=== PATIENT | female | born 2000 | race African-American/Black ===

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

== ENCOUNTER 2019-07-29 04:04 | Emergency (ER) | payer OTHER ==
[2019-07-29 04:44] LABS: Basophils % (A) 1 %; Eosinophils # (A) 0.1 k/uL (0-0.7); Eosinophils % (A) 2 %; HCT 37.8 % (34.0-46.0); Lymphocytes # (A) 2.1 k/uL (1.0-4.8); Lymphocytes % (A) 29 %; MCH 28.8 pg (25.0-35.0); MCHC 34.3 g/dL (31.0-37.0); MCV 84.1 fL (80.0-100.0); Mean Platelet Volume 6.5; Monocytes # (A) 0.4 k/uL (0-1.0); Monocytes % (A) 6 %; Neutrophils # (A) 4.5 k/uL (1.3-7.7); Neutrophils % (A) 61 %; Platelet Count 258 k/uL (150-450); RBC 4.49 m/uL (3.80-5.40); RDW 13.5 % (11.5-15.5); WBC 7.3 k/uL (4.0-11.0)
[2019-07-29 04:56] LABS: ALT 15 U/L (9-52); AST 17 U/L (14-36); African American GFR (CKD) >90 (>60 ml/min/1.73 sqM); Albumin 4.2 g/dL (3.5-5.0); Alkaline Phosphatase 70 U/L (38-126); Anion Gap 9 mmol/L; Blood Urea Nitrogen 3 mg/dL (7-17); Calcium 9.5 mg/dL (8.4-10.2); Carbon Dioxide 22 mmol/L (22-30); Chloride 106 mmol/L (98-107); Glucose 91 mg/dL (74-99); Non-African American GFR(CKD) >90 (>60 ml/min/1.73 sqM); Potassium 3.7 mmol/L (3.5-5.1); Sodium 137 mmol/L (137-145); Total Bilirubin 0.3 mg/dL (0.2-1.3); Total Protein 7.4 g/dL (6.3-8.2)
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
[2019-07-29] MEDS ORDERED: cefTRIAXone 250 MG VIAL IM STA (05:43)
[2019-07-29] MEDS ORDERED: Rhogam IMMUNE GLOBULIN 1,500 UNIT/1 ML IM ONE (05:43)
[2019-07-29] MEDS ORDERED: AZITHROMYCIN 500 MG TAB PO STA (05:43)
[2019-07-29 06:12] LABS: HCG,Quantitative Serum 79987.5 mIU/mL
[2019-07-29 06:46] VITALS: BP 141/92; PULSE 70; RESP 16; TEMP 97.9
[2019-07-30 13:54] LABS: C. trachomatis,PCR Negative (Neg,Equiv); Chlamydia trachomatis Source Cervix
[2019-07-30 13:56] LABS: N. gonorrhoeae,PCR Negative (Neg,Equiv); Neisseria Source Cervix
== END 2019-07-29 06:59 | disposition home or self-care (01) ==
LOC: EC 04:04
DX: O20.9 Hemorrhage in early pregnancy, unspecified (principal); O9A.211 Injury, poisoning and certain other consequences of external causes complicating pregnancy, first trimester; S39.91XA Unspecified injury of abdomen, initial encounter; O99.511 Diseases of the respiratory system complicating pregnancy, first trimester; J45.909 Unspecified asthma, uncomplicated; O99.611 Diseases of the digestive system complicating pregnancy, first trimester; K21.9 Gastro-esophageal reflux disease without esophagitis; O99.341 Other mental disorders complicating pregnancy, first trimester; F31.9 Bipolar disorder, unspecified; F90.9 Attention-deficit hyperactivity disorder, unspecified type; O99.331 Smoking (tobacco) complicating pregnancy, first trimester; F17.200 Nicotine dependence, unspecified, uncomplicated; Z91.010 Allergy to peanuts; Z91.048 Other nonmedicinal substance allergy status; Z79.51 Long term (current) use of inhaled steroids; Z79.899 Other long term (current) drug therapy; Z67.41 Type O blood, Rh negative; Y04.0XXA Assault by unarmed brawl or fight, initial encounter; Y93.89 Activity, other specified; Z3A.12 12 weeks gestation of pregnancy
CPT/HCPCS: 36415; 86900; 86901; 80053; 85025; 86850; 84702; 87491; 87591; 87070; 99284; 96372 ×2; J2791; J0696

== ENCOUNTER 2019-11-26 14:45 | Outpatient (CLI) | payer OTHER ==
[2019-11-26] MEDS: LACTATED RINGERS 1,000 ML IV SCH ×2 (16:58→18:35)
[2019-11-26 17:10] LABS: Appearance,Urine Clear (Clear); Bacteria,Urine Rare /hpf; Bilirubin,Urine Negative (Negative); Blood,Urine Negative (Negative); Color,Urine Yellow; Glucose,Urine (UA) Negative (Negative); Ketones,Urine Negative (Negative); Leukocyte Esterase,Urine Moderate (Negative); Mucus,Urine Occasional /hpf; Nitrite,Urine Negative (Negative); PH, Urine 6.5 (5.0-8.0); Protein,Urine Negative (Negative); RBC,Urine 2 /hpf (0-5); Specific Gravity,Urine 1.016 (1.001-1.035); Squamous Epithelial Cell,Urine 2 /hpf (0-4); Urobilinogen,Urine <2.0 mg/dL (<2.0); WBC,Urine 9 /hpf (0-5)
[2019-11-26 17:46] VITALS: BP 116/63; PULSE 76; RESP 18; TEMP 97.5
[2019-11-26 19:01] LABS: Basophils % (A) 0 %; Eosinophils # (A) 0.1 k/uL (0-0.7); Eosinophils % (A) 1 %; HCT 33.2 % (34.0-46.0); Lymphocytes # (A) 1.5 k/uL (1.0-4.8); Lymphocytes % (A) 14 %; MCH 28.2 pg (25.0-35.0); MCV 85.5 fL (80.0-100.0); Monocytes # (A) 0.5 k/uL (0-1.0); Monocytes % (A) 4 %; Neutrophils # (A) 8.5 k/uL (1.3-7.7); Neutrophils % (A) 79 %; Platelet Count 170 k/uL (150-450); RBC 3.89 m/uL (3.80-5.40); RDW 13.3 % (11.5-15.5); WBC 10.7 k/uL (4.0-11.0)
--- NOTE | 2019-11-28 11:40 | P.MSEPDOC ---
Presenting Problems - Arrival Data Date of Arrival on Unit: 11/26/19 Time of Arrival on Unit: 14:45 Mode of Transport: EMS - Complaint OB-Reason for Admission/Chief Complaint: Pain Comment: sharp shooting abdominal pain, vomiting and diarrhea Medical History - Information : 3 Para: 2 Term: 2 : 0 Abortions: Spontaneous or Elective: 0 Number of Living Children: 2 - Gestational Age Gestational Age by PAZ (wks/days): 33 Weeks and 1 Days - History Complications: No Care, Smoker, Hx. Substance Abuse Comment: marijuana Review of Systems - Review of Systems Constitutional: No problems Breast: No problems ENT: No problems Cardiovascular: No problems Respiratory: No problems Gastrointestinal: Diarrhea Genitourinary: No problems Musculoskeletal: No problems Neurological: No problems Skin: No problems Vital Signs - Temperature Temperature: 97.5 F Temperature Source: Temporal Artery Scan - Pulse Left Brachial Pulse Rate: 76 Pulse Assessment Method: Automatic Cuff - Respirations Respiratory Rate: 18 Oxygen Delivery Method: Room Air O2 Sat by Pulse Oximetry: 100 - Blood Pressure Left Arm Blood Pressure: 116/63 Blood Pressure Mean: 80 Blood Pressure Source: Automatic Cuff Medical Screen Scoring (Pre) - Cervical Exam Dilation: 0 cm = 0 Effacement: Exam Deferred Membranes: Intact - Uterine Contractions Frequency: N/A Duration: N/A Intensity: N/A - Maternal Vital Signs Maternal Temperature: N/A Maternal Blood Pressure: N/A Signs of Preeclampsia: N/A Maternal Respirations: N/A - Maternal Trauma Maternal Trauma: N/A - Assessment - Baby A Baseline FHR: 125 Heart Rate - NICHD Category: Category I (Normal) = 0 NST: Reactive Position: N/A Station: N/A - Total Score - Baby A Total Score - Baby A: 0 - Total Score - Baby B Total Score - Baby B: 0 - Total Score - Baby C Total Score - Baby C: 0 - Level of Risk - Baby A Level of Risk - Baby A: Low (0-5) - Level of Risk - Baby B Level of Risk - Baby B: Low (0-5) - Level of Risk - Baby C Level of Risk - Baby C: Low (0-5) Physician Notification (Pre) - Physician Notified Physician Notified Date: 11/26/19 Physician Notified Time: 15:32 New Order Received: Yes - Notification Comment Comment: run UA, Culture UA and send CBC Medical Screen Scoring (Post) - Uterine Contractions Frequency: N/A Duration: N/A Intensity: N/A - Maternal Vital Signs Maternal Temperature: N/A Maternal Blood Pressure: N/A Signs of Preeclampsia: N/A Maternal Respirations: N/A - Maternal Trauma Maternal Trauma: N/A - Assessment - Baby A Heart Rate: 140 Heart Rate - NICHD Category: Category I (Normal) = 0 NST: Reactive Position: N/A Station: N/A - Total Score Total Score - Baby A: 0 Total Score - Baby B: 0 Total Score - Baby C: 0 - Post Treatment Level of Risk Post Treatment Level of Risk - Baby A: N/A Physician Notification (Post) - Physician Notified Physician Notified Date: 11/26/19 Physician Notified Time: 19:37 Physician/Practitioner Notified:: Dr. Lerma Spoke With: Dr. Lerma New Order Received: Yes - Notification Comment Comment: d/c home Disposition - Disposition OB Disposition: Discharge to home Discharge Date: 11/26/19 Discharge Time: 19:38 I agree with the RN Medical Screening Exam: Yes Risk & Benefit of care provided described in d/c instruction: Yes Diagnosis: RELATED CONDITIONS, UNSPECIFIED, THIRD TRIMESTER
== END 2019-11-26 19:39 | disposition home or self-care (01) ==
LOC: FBPOP 14:45
PROVIDERS: ATTEND Obstetrics & Gynecology
DX: O26.93 Pregnancy related conditions, unspecified, third trimester (principal); Z3A.33 33 weeks gestation of pregnancy
CPT/HCPCS: 59025; 96360; 96361; 85025; 81001; G0463; 99214

== ENCOUNTER → 2019-12-01 | Outpatient (CLI) | payer OTHER ==
[~2019-12-01] MED LIST: cefTRIAXone 250 MG VIAL IM ONE
[2019-12-01 12:55] VITALS: BP 118/74; PULSE 101; RESP 16; TEMP 98.2
== END | disposition home or self-care (01) ==
LOC: PROCWHC3 12:14
PROVIDERS: ATTEND Obstetrics & Gynecology
DX: A54.9 Gonococcal infection, unspecified (principal)
CPT/HCPCS: 96372; J0696

== ENCOUNTER 2020-01-01 16:07 | Inpatient (IN) | payer OTHER ==
[2020-01-01] MEDS ORDERED: METHYLERGONOVINE 0.2 MG/ML 1 ML AMP IM PRN (16:16)
[2020-01-01] MEDS ORDERED: TERBUTALINE 1 MG/ML VIAL SQ PRN (16:16)
[2020-01-01] MEDS ORDERED: CARBOPROST TROMETHAMINE 250 MCG/ML 1 ML AMP IM PRN (16:16)
[2020-01-01] MEDS ORDERED: OXYTOCIN 10 UNIT/ML 1 ML VIAL IM PRN (16:16)
[2020-01-01] MEDS ORDERED: LIDOCAINE 0.5% (PF) 5 MG/ML (50 ML SDV) SQ PRN (16:16)
[2020-01-01] MEDS ORDERED: OXYTOCIN 30 UNITS/500 ML NS 30 UNIT in SALINE 1 500ML.BAG IV SCH (16:30)
[2020-01-01] MEDS ORDERED: PENICILLIN G POTASSIUM 5,000,000 UNIT in DEXTROSE 5% IN WATER 100 ML IVPB ONE ×2 (16:45)
[2020-01-01] MEDS: LACTATED RINGERS 1,000 ML IV SCH (16:54)
--- NOTE | 2020-01-01 17:34 | P.HPOB ---
History of Present Illness H&P Date: 01/01/20 Chief Complaint: Rupture of membranes at 38 weeks This is a 19 year old 3 para 2002 woman with an estimated due date of 01/13/2020 based on a 32 week ultrasound. She presents at 38 weeks gestation with spontaneous rupture of membranes and early active labor. has been complicated by late care. She presented at 33+ weeks gestation for her first visit. She is known group B strep positive and Rh-. She is a smoker and has used marijuana. She also reports a history of possible seizures. She was on Topamax prior to the and reports possible seizure at approximately 20 weeks. She's not been under neurology care or on medications throughout the . 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 Upon presentation rupture of membranes is confirmed and she is 2 cm dilated, 50% effaced and the vertex in the -3 station. She is irregularly lianne. Obstetric history: in 2016 of a 9 lbs. 13 oz. infant, in 2018 of a 7 pound infant. Both term and uncomplicated. Currently the patient's complaining of irregular contractions. She denies vaginal bleeding, headaches, visual changes, nausea, vomiting, diarrhea or constipation. She denies recent seizure activity as described above. Laboratory data: Blood type O-, antibody screen negative, rubella immune, VDRL nonreactive, hepatitis B surface antigen negative, HIV negative, gonorrhea cultures positive on 11/29/2019, treated. Diabetes screening within normal limits, group B strep positive. Review of Systems All systems: negative Past Medical History Past Medical History: Asthma, GERD/Reflux Additional Past Medical History / Comment(s): stress seizures, History of Any Multi-Drug Resistant Organisms: None Reported Past Surgical History: Tonsillectomy Additional Past Surgical History / Comment(s): nose surgery, Past Anesthesia/Blood Transfusion Reactions: No Reported Reaction Smoking Status: Current every day smoker Past Drug Use History: Marijuana - Past Family History Brother(s) Family Medical History: Asthma Additional Family Medical History / Comment(s): seasonal allergies Mother Family Medical History: Cancer Additional Family Medical History / Comment(s): bone and breast cancer, per pt. asthma. hernia Medications and Allergies Home Medications Medication Instructions Recorded Confirmed Type Beclomethasone Dipropionate [Qvar 1 puff INHALATION 12/01/19 History 40 mcg Redihaler] Loratadine 1 tab PO DAILY 12/01/19 12/01/19 History Vit,Calc78/Iron/Folic 1 each PO DAILY 12/01/19 12/01/19 History [Pretab 29 mg-1 mg Tablet] Ranitidine HCl 150 mg PO HS 12/01/19 12/01/19 History Sertraline [Zoloft] 1 tab PO DAILY 12/01/19 12/01/19 History Topiramate [Topamax] 1 tab PO DAILY 12/01/19 12/01/19 History Allergies Allergy/AdvReac Type Severity Reaction Status Date / Time grass pollen Allergy Dyspnea Verified 12/01/19 12:40 peanut Allergy Swelling Verified 12/01/19 12:40 DUST Allergy Dyspnea Uncoded 12/01/19 12:40 Exam Intake and Output 01/01/20 01/01/20 01/01/20 06:59 14:59 22:59 Other: Weight 97.522 kg This is an uncomfortable appearing, visibly gravid young -Congolese female. Targeted physical exam is performed. The abdomen is gravid with an estimated weight of approximately 7-1/2 pounds. On pelvic examination the cervix is 2 cm dilated, 50% effaced and the vertex is -2 station. Clear fluid is noted. She is lianne every 3-5 minutes. She has category 1 heart tones. Assessment and Plan (1) Rh negative status during Current Visit: No Status: Acute Code(s): O09.899 - SUPERVISION OF OTHER HIGH RISK PREGNANCIES, UNSP TRIMESTER SNOMED Code(s): 039635267 (2) Term Current Visit: No Status: Acute Code(s): Z34.80 - ENCOUNTER FOR SUPRVSN OF NORMAL , UNSP TRIMESTER SNOMED Code(s): 77310549 (3) Insufficient care Current Visit: Yes Status: Acute Code(s): O09.30 - SUPRVSN OF PREG W INSUFFICIENT ANTENAT CARE, UNSP TRIMESTER SNOMED Code(s): 7150892052325 (4) Spontaneous rupture of membranes Current Visit: Yes Status: Acute Code(s): NSZ5075 - SNOMED Code(s): 001485890 (5) GBS (group B Streptococcus carrier), +RV culture, currently Current Visit: Yes Status: Acute Code(s): O99.820 - STREPTOCOCCUS B CARRIER STATE COMPLICATING SNOMED Code(s): 4012347785428 (6) Tobacco abuse Current Visit: Yes Status: Acute Code(s): Z72.0 - TOBACCO USE SNOMED Code(s): 172708002 Plan: 19-year-old 3 para 2 woman admitted at 38+ weeks gestation with spontaneous rupture of membranes and early active labor. Group B strep positive. Prophylactic antibiotics have been initiated. She is Rh-. status is currently reassuring by external monitoring. Pitocin augmentation will be initiated. She may have an epidural anesthetic upon request in active labor. Anticipate normal spontaneous vaginal delivery.
[2020-01-01 17:38] LABS: Basophils # (A) 0.1 k/uL (0-0.2); Basophils % (A) 1 %; Eosinophils # (A) 0.2 k/uL (0-0.7); Eosinophils % (A) 2 %; HCT 31.6 % (34.0-46.0); HGB 10.6 gm/dL (11.4-16.0); Lymphocytes # (A) 2.1 k/uL (1.0-4.8); Lymphocytes % (A) 23 %; MCHC 33.4 g/dL (31.0-37.0); MCV 83.8 fL (80.0-100.0); Mean Platelet Volume 8.5; Monocytes # (A) 0.7 k/uL (0-1.0); Monocytes % (A) 8 %; Neutrophils # (A) 5.5 k/uL (1.3-7.7); Neutrophils % (A) 62 %; Platelet Count 192 k/uL (150-450); RBC 3.77 m/uL (3.80-5.40); RDW 13.6 % (11.5-15.5); WBC 8.9 k/uL (4.0-11.0)
[2020-01-01 17:59] LABS: Amphetamine Screen,Urine Not Detected (NotDetected); Barbiturate Screen,Urine Not Detected (NotDetected); Benzodiazepines Screen,Urine Not Detected (NotDetected); Cocaine Screen,Urine Not Detected (NotDetected); Methadone Screen, Urine Not Detected (NotDetected); Opiate Screen,Urine Not Detected (NotDetected); Oxycodone Screen, Urine Not Detected (NotDetected); Phencyclidine Screen,Urine Not Detected (NotDetected); Tricyclic Antidepressant,Urine Not Detected (NotDetected); Urn Cannabinoid Scrn Detected (NotDetected)
[2020-01-01] MEDS ORDERED: BUTORPHANOL 1 MG/ML 1 ML VIAL IV PRN (18:19)
[2020-01-01] MEDS: PENICILLIN G POTASSIUM 2,500,000 UNIT in DEXTROSE 5% IN WATER 100 ML IVPB SCH ×2 (21:17)
[2020-01-02] MEDS: LACTATED RINGERS 1,000 ML IV SCH ×2 (00:01→08:00)
[2020-01-02] MEDS: PENICILLIN G POTASSIUM 2,500,000 UNIT in DEXTROSE 5% IN WATER 100 ML IVPB SCH ×6 (01:08→09:23)
[2020-01-02 05:56] LABS: Glucose,Whole Blood 73 mg/dL (75-99)
[2020-01-02 06:26] LABS: ALT 11 U/L (4-34); AST 23 U/L (14-36); African American GFR (CKD) >90 (>60 ml/min/1.73 sqM); Albumin 2.9 g/dL (3.5-5.0); Alkaline Phosphatase 129 U/L (38-126); Anion Gap 7 mmol/L; Blood Urea Nitrogen 3 mg/dL (7-17); Calcium 8.6 mg/dL (8.4-10.2); Carbon Dioxide 19 mmol/L (22-30); Chloride 109 mmol/L (98-107); Glucose 71 mg/dL (74-99); Non-African American GFR(CKD) >90 (>60 ml/min/1.73 sqM); Potassium 3.5 mmol/L (3.5-5.1); Sodium 135 mmol/L (137-145); Total Bilirubin 0.6 mg/dL (0.2-1.3); Total Protein 5.7 g/dL (6.3-8.2)
[2020-01-02] MEDS ORDERED: LORazepam 2 MG/ML INJ IV STA (06:51)
--- NOTE | 2020-01-02 07:02 | P.PN ---
Progress Note - Text Progress Note Date: 01/02/20 Patient had observed seizures 2. Tonic clonic with incontinence and post ictal. First seizure lasting less than 2 minutes followed rapidly by second seizure lasting less than 1 minute. The rapid response nursing team was called for assessment. Patients vital signs were stable specifically she is not hypertensive or hypoxic, OBIX for vital signs data. The patient is 5 cm dilated 50% effaced and the vertex is -3. And uncomfortable with contractions. She had received Stadol 1 mg approximate 45 minutes prior to the seizure activity. heart tones are category 2 and she is lianne approximately every 5 minutes, oxytocin has been discontinued. On exam the patient is a somewhat somnolent but uncomfortable -[place] female who is visibly gravid, post ictal. Lungs are clear to auscultation bilaterally and the heart is of regular rate and rhythm. The abdomen is gravid with palpable moderate contractions. Her cervix is 5 cm dilated 50% effaced and the vertex is in the -3 station. Clear fluid is noted. Deep tendon reflexes are 2+ bilaterally with no clonus. 12-lead EKG is normal, see chart. Labs pending. Anesthesiologist has been contacted for placement of epidural for pain control. Hopefully this will decrease her pain and stress as risk factors for additional seizure activity. Lorazepam 2 mg IV as needed if additional seizure activity noted. This is not clinically consistent with eclampsia. Neurology consult for long-term plan and care. One-to-one nursing for duration of labor with seizure precautions. She is still appropriate candidate for a vaginal delivery. Of note the patient's mother says that she has had significant seizure activity throughout the . This is not consistent with the history that the patient herself provided. Patient's mother said that last week she had 3 seizures that resolved with administration of medical marijuana.
[2020-01-02] MEDS ORDERED: ROPIVACAINE 100 MG, fentaNYL (PF) 200 MCG in SODIUM CHLORIDE 0.9% 76 ML EPIDURAL ONE (08:21)
[2020-01-02] MEDS ORDERED: diphenhydrAMINE 50 MG CAP PO PRN (12:59)
[2020-01-02] MEDS ORDERED: SIMETHICONE 80 MG CHEWABLE PO PRN (12:59)
[2020-01-02] MEDS ORDERED: diphenhydrAMINE 50 MG/ML 1 ML VIAL IVP PRN ×2 (12:59)
[2020-01-02] MEDS ORDERED: WITCH HAZEL 1 EACH MED..PAD TOPICAL PRN (12:59)
[2020-01-02] MEDS ORDERED: ACETAMINOPHEN TAB 325 MG TAB PO PRN (12:59)
[2020-01-02] MEDS ORDERED: LANOLIN CREAM 5 GM TUBE TOPICAL PRN (12:59)
[2020-01-02] MEDS ORDERED: HYDROCORTISONE 2.5% RECTAL CREAM 30 GM TUBE RECTAL PRN (12:59)
[2020-01-02] MEDS ORDERED: diphenhydrAMINE 25 MG CAP PO PRN (12:59)
[2020-01-02] MEDS ORDERED: BENZOCAINE/MENTHOL SPRAY 1 GM/SPRAY AEROSOL TOPICAL PRN (12:59)
[2020-01-02] MEDS ORDERED: ZOLPIDEM 5 MG TAB PO PRN (12:59)
--- NOTE | 2020-01-02 12:59 | P.PROBDLV ---
Vaginal Delivery Note - . Vaginal Delivery Note: Findings: Female in the vertex left occiput anterior position with Apgars of 8 at 1 minute and 9 at 5 minutes weighing 7 lbs. 2 oz., 3250 g. Intact, three-vessel cord placenta. No perineal lacerations. EBL 250 mL's. Delivery summary: This is a 19-year-old 3 para 2001 woman who presented at 38-2/7 weeks' gestation with spontaneous rupture of membranes on 01/01/2020. She was not in active labor. She was admitted and group B strep prophylactic antibiotics were initiated head as well as Pitocin induction of labor. She had a quite prolonged latent and first stage of labor. She also had a witnessed seizure at approximately 5:45 AM on 01/02/2020. At that time she was 5 cm dilated. Please see the progress note detailing events. Following her seizure heart tones were category 2 and ultimately category 1. She received an epidural anesthetic. She reached complete cervical dilation by approximately 1237. She commenced pushing with excellent maternal effort. The infant's head did crown and patient was repositioned in the modified [place] position. With additional maternal effort 1 the head delivered from the left occiput anterior position followed rapidly by the anterior and posterior shoulders. The rest the was delivered onto the field. The was placed on the maternal abdomen after the nose and mouth were bulb suctioned. After waiting appropriate length of time for the cord stopped actively pulsating the cord was clamped and cut. Apgars were 8 at 1 minute and 9 at 5 minutes and weight was 7 lbs. 2 oz., 3250 g. The perineum was inspected and no obvious lacerations were noted. The uterus was massaged and an intact, three-vessel cord placenta was expressed after an approximately 5 minute third stage of labor. She had some initial moderate uterine atony that was managed with bimanual massage and Pitocin intravenously. This rapidly resolved. The rest the vagina and cervix were further inspected and no lacerations were noted. EBL was approximately 250 mL's. Both mother and infant were doing well post delivery in the room. Seizure prophylaxis will continue. Neurology consult as well as licensed master social worker consult will be pending. All counts were correct post delivery.
[2020-01-02] MEDS ORDERED: OXYTOCIN 20 UNITS/1000 ML NS 1,000 ML IV SCH (13:00)
[2020-01-03] MEDS: IBUPROFEN 600 MG TAB PO PRN ×3 (02:28→20:20)
[2020-01-03] MEDS: SENNOSIDES-DOCUSATE SODIUM 1 EACH TAB PO SCH ×3 (02:50→22:56)
[2020-01-03 06:25] LABS: HCT 30.8 % (34.0-46.0); HGB 10.4 gm/dL (11.4-16.0); MCH 27.9 pg (25.0-35.0); MCHC 33.6 g/dL (31.0-37.0); Mean Platelet Volume 8.2; Platelet Count 184 k/uL (150-450); RBC 3.71 m/uL (3.80-5.40); RDW 13.7 % (11.5-15.5); WBC 8.3 k/uL (4.0-11.0)
[2020-01-03 08:44] LABS: Eosinophils # (M) 0.25 k/uL (0-0.7); Lymphocytes # (M) 2.08 k/uL (1.0-4.8); Monocytes # (M) 0.91 k/uL (0-1.0); Neutrophils # (M) 5.06 k/uL (1.3-7.7); Neutrophils % (M) 61 %; Nucleated Red Blood Cells 0 /100 WBC (0-0); Total Cells Counted 100
[2020-01-03 08:46] LABS: Anisocytosis (M) Present
--- NOTE | 2020-01-03 09:19 | P.PNOBGVD ---
Subjective - Subjective Patient reports: Reports appetite normal, Reports voiding normally, Reports pain well controlled, Reports ambulating normally : doing well Objective - Latest Vital Signs Latest vital signs: Vital Signs Temp Pulse Resp BP Pulse Ox 01/03/20 08:24 98.2 F 79 17 124/68 01/03/20 03:01 99.1 F 71 16 122/72 99 01/02/20 15:12 98.4 F 72 18 115/67 97 01/02/20 14:35 97 18 113/57 01/02/20 14:05 69 18 121/63 01/02/20 13:50 91 18 113/56 01/02/20 13:35 76 18 121/73 01/02/20 13:20 83 18 114/66 01/02/20 12:59 81 18 121/65 Intake and Output 01/02/20 01/03/20 01/03/20 22:59 06:59 14:59 Output Total 250 Balance -250 Output: Estimated Blood Loss 250 Other: # Voids 1 - Exam Extremities: Present: normal Abdomen: Present: normal appearance, soft Uterus: Present: normal, firm (The uterine fundus is tonic and nontender around the umbilicus.) - Labs Labs: Abnormal Lab Results - Last 24 Hours (Table) 01/03/20 Range/Units 05:34 RBC 3.71 L (3.80-5.40) m/uL Hgb 10.4 L (11.4-16.0) gm/dL Hct 30.8 L (34.0-46.0) % Assessment and Plan (1) Normal spontaneous vaginal delivery Current Visit: No Status: Acute Code(s): O80 - ENCOUNTER FOR FULL-TERM UNCOMPLICATED DELIVERY SNOMED Code(s): 44594324 (2) Seizure disorder Current Visit: Yes Status: Acute Code(s): G40.909 - EPILEPSY, UNSP, NOT INTRACTABLE, WITHOUT STATUS EPILEPTICUS SNOMED Code(s): 933519928 Plan: Continue routine care. As there is no inpatient neurology available, I have strongly encouraged the patient to resume her prepregnancy dose of Topamax. She does not know the dose at this time but will have family check her bottle at home. Otherwise, I would anticipate discharge home tomorrow pending applications.
[2020-01-03] MEDS: levETIRAcetam IV 500 MG in SODIUM CHLORIDE 0.9% 100 ML IVPB SCH (11:27)
--- NOTE | 2020-01-03 17:04 | EEG ---
ELECTROENCEPHALOGRAM REPORT DATE OF SERVICE: 01/03/2020 HISTORY: This is an inpatient EEG performed on a 19-year-old female who has history of seizures. Immediately , she is reported to have a tonic clonic seizure. Patient is now on Keppra. No prior EEG is available for review. TECHNICAL REPORT: This is an inpatient EEG performed on the [employer] EEG monitor with electrodes placed according to the International 10-20 system and a single EKG channel. Simultaneous video EEG monitoring was performed. This EEG was reviewed in both longitudinal bipolar, common average referential and transverse montages. Both photic stimulation and hyperventilation were performed. The recording begins with the patient in stage 2 sleep. This is characterized by the appearance of synchronous sleep spindles between 12-14 Hz, vertex waves and rare vertex sharp transients. The background consisted of a yhc-ij-szmghdig amplitude mixed theta frequency with increased beta activity anteriorly and centrally. At 14:21:32, noisy environment followed by a brief arousal cortically. This is associated with an increase in muscle artifact noted anteriorly and centrally. At 14:22:10 the phone rings. The patient still remains asleep in stage II. Frequent vertex sharp transients become more prominent. At 14:27:41 the patient arouses and this is associated with increased motion and movement artifact with eye opening. The background now becomes 7-8 Hz potentials, reaching a maximum of 9 Hz, consistent with an alpha rhythm. Hyperventilation was performed with good effort. No physiologic slowing was noted. Photic stimulation was performed at various flash frequencies and failed to elicit a consistent driving response. During photic, the patient remained awake but then transitioned and waxed and waned between quiet wakefulness and drowsiness. Drowsiness was characterized by an attenuation of the background rhythm, the appearance of slow rolling eye movements and increase in beta activity anteriorly and centrally. Rare vertex waves were noted. The technologist claps loudly in order to keep and maintain the patient into wakefulness. The patient remained awake briefly and reached a maximum of 10 Hz posterior dominant rhythm. This she transitioned again back into stage 1 sleep. At 14:38:51 the patient now is scratching her head. This is followed by an arousal and full waking with frequent eye blinking. The posterior dominant rhythm remains between 8-10 Hz, is symmetric and attenuates with eye opening. Deeper stages of sleep were not achieved. IMPRESSION: This is a normal wake, drowsy, sleep EEG study. No abnormalities were noted during photic stimulation or hyperventilation. No abnormalities were noted in the EKG. CLINICAL CORRELATION: This EEG does not exclude an underlying seizure tendency, thus if clinically indicated, serial EEGs are recommended and/or if clinically available, a more prolonged outpatient ambulatory EEG could provide additional information. MMODL / IJN: [id number] / JORDYN
--- NOTE | 2020-01-04 00:21 | CONS ---
CONSULTATION NEW NEUROLOGY CONSULT NOTE: DATE OF SERVICE: January 03, 2020 REASON FOR CONSULT: Recurrent seizures. HISTORY: This is a new neurology consult requested for further advice and recommendations for a 19-year-old right-handed female who is now , 3, para 3. The patient underwent uneventful delivery with the exception of having a generalized tonic-clonic seizure occurring during labor. The history is provided by both the patient and her mother. The patient reports that she started having seizures back during her second towards the beginning of the third trimester. That was considered high risk. She was having complications involving hypoglycemia, gestational diabetes, and insomnia. The patient reports that second was extremely stressful psychologically and physically. She began to have many seizures which were described as generalized tonic-clonic seizures followed by postictal fatigue and sleep. Sometimes these seizures would cluster. Initially she did not seek medical attention for them. Her second seizure occurred when she was in her third trimester with that second . She recalls she was over at her boyfriend's home and he witnessed several seizures occurring. It was after this seizure that she was seen by a neurologist and put on she believes levetiracetam which is what she is currently started on now. This was somewhat complicated. She delivered a baby boy who is now 1 year 10- month-old. He has lung dysplasia, hernia and mild anoxic brain injury thought to be due to the seizures that she was having while . The patient reports that she went to see a Dr. Giron, who is her primary care physician who also put her on Topamax for headaches. This was started prior to this back in May 2019. She is not sure if she was on this for seizures or for migraine, but she stopped the medication once she knew she became . During labor the patient reportedly had a brief generalized tonic-clonic seizure that was witnessed by her mother. Neurology was contacted and the patient was started on IV Keppra 500 mg q.12. Since starting Keppra this morning after her first dose, she has had no ill side effects. No further seizures have been reported. PAST MEDICAL HISTORY: Unremarkable for any major medical illnesses. FAMILY HISTORY: Maternal: Maternal uncle with epilepsy due to in utero exposure as an infant to drugs. Maternal uncle with medically refractive seizures due to traumatic brain injury. Mother has a history of migraines and developed a seizure once after chemotherapy (breast cancer survivor). Siblings all in good health. Paternal: No available history. REVIEW OF SYSTEMS: Overall, patient is in generally good health, but she has had several seizures over the past 2 years and has been on and off medication. The patient also reports suffering from migraines. SOCIAL HISTORY: The patient lives with at home with her grandmother. The patient does not smoke, drink alcohol, has a good support system. PERTINENT LABS: The patient examined, chart reviewed. EEG report shows a normal wake and sleep EEG study. No abnormalities were noted during photic stimulation or hyperventilation. GENERAL PHYSICAL EXAMINATION: APPEARANCE: No acute distress. Somewhat lethargic and sleepy. HEENT: Clear sclerae. Clear oropharynx. EXTREMITIES: No edema noted in the hands or feet. SKIN: No rash, bruising or petechia noted. Multiple tattoos are present. NEUROLOGICAL EXAM: Mental Status: Patient is awake, alert, oriented to time, place, person. Speech fluent. Cranial Nerves: Extraocular movements are full. No nystagmus noted on vertical or horizontal gaze. Face is symmetric. Palate elevates symmetrically. Shoulder shrug symmetric. Tongue is midline without fasciculations or deviation. Motor Examination: Normal muscle bulk and tone throughout. Strength is 5/5 throughout. Pronator drift negative. No tremors, fasciculations noted. Coordination: Testing is intact to itamik-fu-chxp testing with eyes open and eyes closed. Vinn-gi-jzwl maneuver intact. Sensory Examination: Intact to light touch and pinprick throughout. Deep Tendon Reflexes: Brisk bilaterally, +3 at the knees without cross adduction. A +2 bilaterally over biceps, triceps, brachioradialis. Ankle jerks intact bilaterally. No ankle clonus elicited. Gait Examination: The patient walks without any difficulty. No ataxia noted. ASSESSMENT: This is a 19-year-old female who has a known history for multiple seizures over the past 2 years that are described as generalized tonic clonic without any aura. The patient has been on anticonvulsant medication started by primary care physician and possibly has been seen in the past by a neurologist. It is unclear whether the patient has actually had an MRI of her brain to rule out any potential cause, structural mass lesion. It is reassuring that her examination today is normal and the EEG is normal. But based on this patient's history, she should be maintained on a lowest dose as possible on an anticonvulsant medication that is broad spectrum. The drug of choice for this at this time would be Keppra. However, the ideal anticonvulsant medication for a woman of childbearing age would be lamotrigine as it has the largest database registry. This could potentially be started once she is established care with a neurologist on a permanent basis who can slowly taper her off Keppra while lamotrigine is being titrated. This patient should undergo neuro imaging studies to assure there is no congenital anomaly or structural mass lesion as a potential cause for her epilepsy. SUMMARY: 1. A 19-year-old . 2. High probability of primary generalized epilepsy. 3. Remote history of head injury as a toddler. PLAN: 1. Continue patient on Keppra IV up to discharge. The patient can be discharged home on Keppra 500 mg p.o. twice daily. Based on this patient's size and weight, anticipate she could require higher doses such as 750 mg twice daily. But this needs to be titrated slowly. 2. MRI of the brain without contrast and MRA of the head and neck without contrast. MRA to rule out possible aneurysm or dissection. 3. Please arrange for patient to establish care with a neurologist in the community. This patient should be seen within the next several weeks to be re-evaluated for dosage. Thank you for this consultation. This patient's prognosis remains good. Further recommendations will be made as this case evolves. Neurology will clear patient prior to discharge. MMODL / IJN: [id number] /
[2020-01-04] MEDS: IBUPROFEN 600 MG TAB PO PRN ×2 (08:31→20:07)
[2020-01-04] MEDS: SENNOSIDES-DOCUSATE SODIUM 1 EACH TAB PO SCH (08:31)
[2020-01-04] MEDS ORDERED: levETIRAcetam IV 500 MG in SODIUM CHLORIDE 0.9% 100 ML IVPB ONE (09:00)
[2020-01-04 09:01] VITALS: RESP 17
[2020-01-04] MEDS: levETIRAcetam IV 500 MG in SODIUM CHLORIDE 0.9% 100 ML IVPB SCH (11:28)
--- NOTE | 2020-01-04 13:56 | P.DS ---
Providers Date of admission: 01/01/20 16:07 Expected date of discharge: 01/04/20 Attending physician: Jemima Dowd Consults: 01/03/20 09:28 Consult Physician Routine Consulting Provider: Rand Starks Consult Reason/Comments: seizure disorder, not currently taking medication Do you want consulting provider notified?: Yes Primary care physician: Stated None - Discharge Diagnosis(es) (1) Normal spontaneous vaginal delivery Current Visit: No Status: Acute (2) Seizure disorder Current Visit: Yes Status: Acute Hospital Course: The patient is a 19-year-old 3 para 2001 admitted at 38+ weeks gestation by a late dating ultrasound. She is admitted in early labor with spontaneous rupture of membranes for clear fluid. Her was initially thought to be uncomplicated aside from lack of care with presentation at approximately 32-33 weeks of . She does have a history of pseudoseizures which she reports. On labor and delivery, she was making slow progress through the latent phase of labor and, after a dose of Stadol intravenously, had 2 witnessed grand mal tonic-clonic seizures after which time her mother reported that she has these "all the time." She had Pitocin augmentation started and an epidural catheter placed for analgesia and ultimately progressed to complete. She then pushed to a normal vaginal delivery of a viable 7 lbs. 2 oz. baby girl with Apgars of 8 at 1 minute and 9 at 5 minutes. Her care was unremarkable. She did have a neurology consultation which led to her being placed on Keppra with IV dosing well in hospital to be followed up with oral dosing as an outpatient. EEG has been reported as negative and MRI of the head is pending. She has not had seizure activity since the time of . She is deemed stable for discharge on day #2 and was discharged home to follow-up in the office in 6 weeks' time routinely. Neurology will suggest the timing of her return from their perspective. She was given instructions to have nothing in vagina for at least 6 weeks time to include intercourse and to abstain from any heavy lifting over the same period of time. She was also instructed to call for any significantly increased bleeding or foul-smelling lochia, significantly increased fever abdominal pain, perineal complaints, breast complaints, or anything else that concerned her. She understood her instructions and agrees to follow up as noted above. Discharge medications included Keppra with dosing per neurology. She additionally was given a dose of Depo-Provera 150 mg intramuscularly prior to discharge and will likely have a Nexplanon placed at or shortly after the 6 week visit. Maternal blood type is O- and cord blood was sent for evaluation for the necessity of RhoGAM prior to discharge. Rubella status is immune. Procedures: #1. Epidural analgesia #2. Pitocin augmentation #3. Antibiotic prophylaxis #4. Normal spontaneous vaginal delivery #5. Neurology consult Patient Condition at Discharge: Stable Plan - Discharge Summary New Discharge Prescriptions: No Action Vit,Calc78/Iron/Folic [Pretab 29 mg-1 mg Tablet] 1 each PO DAILY Discharge Medication List Vit,Calc78/Iron/Folic [Pretab 29 mg-1 mg Tablet] 1 each PO DAILY 12/01/19 [History] Follow up Appointment(s)/Referral(s): Rick Lerma MD [STAFF PHYSICIAN] - 6 Weeks Discharge Disposition: HOME SELF-CARE
[2020-01-04] MEDS ORDERED: medroxyPROGESTERone 150 MG/ML 1ML VIAL IM ONE (14:01)
--- NOTE | 2020-01-04 14:09 | MR ---
EXAMINATION TYPE: MR brain wo con DATE OF EXAM: 01/04/2020 COMPARISON: CT brain 08/17/2018 HISTORY: Tonic and Colonic Seizure activity during Labor CONTRAST: Performed utilizing 0 mL intravenous Gadavist gadolinium contrast. TECHNIQUE: Multiplanar, multiecho imaging on a 3.0 Abigail magnet is performed through the brain. Stud y is performed within 24 hours of arrival to the hospital. The craniovertebral junction is normal. The pituitary is normal. Diffusion-weighted imaging is performed. No abnormal hyperintensity is present to suggest an acute i ntracranial infarct or acute ischemic change. Signal within the brain is normal. Temporal lobes are symmetrical. Ventricles and sulci are appropriate for the patient age. IMPRESSIONS: 1. Normal noncontrast MRI brain
--- NOTE | 2020-01-04 14:12 | MR ---
EXAMINATION TYPE: MR angio head/neck wo con DATE OF EXAM: 01/04/2020 COMPARISON: None HISTORY: Tonic and Colonic Seizure activity during Labor CONTRAST: None TECHNIQUE: Multiplanar multiecho imaging on a 3.0 Abigail magnet is performed through the [place]. 3-D [id number] imaging is performed. Source images are reviewed on the computer in the axi al plane. Reconstructed images rotating on the computer are reviewed. FINDINGS: The internal carotid arteries bifurcate normally into A1 and M1 segments. The A2 segments are normal. Middle cerebral artery branches are normal. Anterior communicating artery is patent. The right posterior communicating artery is patent. The left posterior communicating artery is patent. Ophthalmic arteries appear normal Vertebrobasilar arteries within the [id number] are normal. Right vertebral artery is dominant. Po sterior cerebral vasculature is normal. No suspicious aneurysm or aneurysmal dilatation is evident. No obstructions are identified. No significant flow-limiting stenosis is evident. Carotid arteries: Bilateral carotid bifurcations are evaluated. No significant flow-limiting stenosis is evident. No significant plaquing is evident. Internal carotid arteries are patent to the skull ba se. The right vertebral artery is dominant. Left vertebral artery is patent. There is a three-vessel arch. There is some limitation at the arch due to slab artifact. IMPRESSIONS: 1. NORMAL MRA ASSINIBOINE AND [place]. 2. Normal bilateral carotid bifurcations
[2020-01-04 15:30] VITALS: BP 110/65; PULSE 78; TEMP 98.4
== END 2020-01-04 21:00 | disposition home or self-care (01) | DRG 807 ==
LOC: 4FBP 16:07
PROVIDERS: ADMIT Obstetrics & Gynecology; ATTEND Obstetrics & Gynecology
PROC: 10E0XZZ Delivery of Products of Conception, External Approach (ICD-10-PCS; principal; 2020-01-02)
PROC: 00HU33Z Insertion of Infusion Device into Spinal Canal, Percutaneous Approach (ICD-10-PCS; principal; 2020-01-02)
PROC: 3E0R3BZ Introduction of Anesthetic Agent into Spinal Canal, Percutaneous Approach (ICD-10-PCS; principal; 2020-01-02)
DX: O99.824 Streptococcus B carrier state complicating childbirth (principal); Z37.0 Single live birth; G40.409 Other generalized epilepsy and epileptic syndromes, not intractable, without status epilepticus; O62.2 Other uterine inertia; O26.893 Other specified pregnancy related conditions, third trimester; F17.200 Nicotine dependence, unspecified, uncomplicated; Z67.91 Unspecified blood type, Rh negative; Z3A.38 38 weeks gestation of pregnancy; O99.354 Diseases of the nervous system complicating childbirth; O99.52 Diseases of the respiratory system complicating childbirth; O99.334 Smoking (tobacco) complicating childbirth; O99.62 Diseases of the digestive system complicating childbirth; J45.909 Unspecified asthma, uncomplicated; G43.909 Migraine, unspecified, not intractable, without status migrainosus; K21.9 Gastro-esophageal reflux disease without esophagitis; R32 Unspecified urinary incontinence; G47.00 Insomnia, unspecified; Z79.51 Long term (current) use of inhaled steroids; Z79.899 Other long term (current) drug therapy; Z98.890 Other specified postprocedural states; Z86.32 Personal history of gestational diabetes; Z87.820 Personal history of traumatic brain injury; Z86.69 Personal history of other diseases of the nervous system and sense organs; Z91.010 Allergy to peanuts; Z91.048 Other nonmedicinal substance allergy status; Z82.5 Family history of asthma and other chronic lower respiratory diseases; Z80.3 Family history of malignant neoplasm of breast; Z80.8 Family history of malignant neoplasm of other organs or systems; Z82.0 Family history of epilepsy and other diseases of the nervous system; Z84.89 Family history of other specified conditions
CPT/HCPCS: 70544; 70547; 70551; 80053; 80306; 85025; 86850; 86870; 86880; 86900; 86901; 86902; 88307; 93005; 95819

== ENCOUNTER 2020-05-30 01:51 | Emergency (ER) | payer OTHER ==
[2020-05-30 01:59] VITALS: RESP 16
[2020-05-30] MEDS ORDERED: SODIUM CHLORIDE 0.9% 1,000 ML IV STA (02:41)
--- NOTE | 2020-05-30 02:48 | ED ---
Seizure HPI - General Chief Complaint: Seizure Stated Complaint: seizure Time Seen by Provider: 05/30/20 02:40 Source: EMS Limitations: no limitations - History of Present Illness Initial Comments: Desire a 19-year-old female with a history of stress-induced seizure-like activity. 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 Patient reports that she worked her first night got off work at 6:30 and returned home for her child woke up by 8 AM and she was unable to sleep for a majority of the day. Patient reports when she went to work tonight she was very tired and sleep deprived. She reports she had a shaking episode similar to her previous stress-induced seizure-like activity. Patient did not have a postictal. She didn't have any tongue biting or loss of bowel or bladder continence. Reported she primarily had shaking of the right lower extremity which resolved prior to EMS arrival. - Related Data Home Medications Medication Instructions Recorded Confirmed Vit,Calc78/Iron/Folic 1 each PO DAILY 12/01/19 01/01/20 [Pretab 29 mg-1 mg Tablet] Allergies Allergy/AdvReac Type Severity Reaction Status Date / Time grass pollen Allergy Dyspnea Verified 05/30/20 01:59 peanut Allergy Swelling Verified 05/30/20 01:59 DUST Allergy Dyspnea Uncoded 12/01/19 12:40 Review of Systems ROS Statement: Those systems with pertinent positive or pertinent negative responses have been documented in the HPI. ROS Other: All systems not noted in ROS Statement are negative. Past Medical History Past Medical History: Asthma, GERD/Reflux Additional Past Medical History / Comment(s): stress seizures, History of Any Multi-Drug Resistant Organisms: None Reported Past Surgical History: Tonsillectomy Additional Past Surgical History / Comment(s): nose surgery, Past Anesthesia/Blood Transfusion Reactions: No Reported Reaction Past Psychological History: ADD/ADHD, Bipolar, Depression Smoking Status: Current every day smoker Past Alcohol Use History: None Reported Past Drug Use History: Marijuana - Past Family History Brother(s) Family Medical History: Asthma Additional Family Medical History / Comment(s): seasonal allergies Mother Family Medical History: Cancer Additional Family Medical History / Comment(s): bone and breast cancer, per pt. asthma. hernia General Exam - General Exam Comments Initial Comments: Physical Exam GENERAL: Patient is well-developed and well-nourished. Patient is nontoxic and well-hydrated and is in no distress. HENT: Normocephalic, Atraumatic. EYES: PERRL, EOMI PULMONARY: Unlabored respirations. CARDIOVASCULAR: RRR Warm and well perfused extremities ABDOMEN: Non-distended SKIN: No rashes or bruising : Deferred NEUROLOGIC: Alert and oriented Normal speech Normal gait MUSCULOSKELETAL: Moving all extremities with no apparent injury PSYCHIATRIC: No SI/HI Limitations: no limitations Course Vital Signs 05/30/20 05/30/20 01:53 05:17 Temperature 98.9 F 98.2 F Pulse Rate 71 83 Respiratory 16 16 Rate Blood Pressure 109/86 111/73 O2 Sat by Pulse 96 97 Oximetry Medical Decision Making - Medical Decision Making The patient was seen and evaluated history is obtained from patient Patient reports that she has stress-induced seizure-like activity, she is not on any antiepileptics Patient was sleep deprived going into her 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 Patient comfortable the plan for discharge home to get a good night's rest and return to work tomorrow night. - Lab Data Result diagrams: 05/30/20 02:56 05/30/20 02:56 Lab Results 05/30/20 05/30/20 05/30/20 Range/Units 02:55 02:56 02:56 WBC 4.6 (4.0-11.0) k/uL RBC 4.41 (3.80-5.40) m/uL Hgb 12.3 (11.4-16.0) gm/dL Hct 37.3 (34.0-46.0) % MCV 84.6 (80.0-100.0) fL MCH 27.9 (25.0-35.0) pg MCHC 32.9 (31.0-37.0) g/dL RDW 13.5 (11.5-15.5) % Plt Count 213 (150-450) k/uL Neutrophils % 36 % Lymphocytes % 52 % Monocytes % 5 % Eosinophils % 5 % Basophils % 1 % Neutrophils # 1.6 (1.3-7.7) k/uL Lymphocytes # 2.4 (1.0-4.8) k/uL Monocytes # 0.2 (0-1.0) k/uL Eosinophils # 0.2 (0-0.7) k/uL Basophils # 0.0 (0-0.2) k/uL Sodium (137-145) mmol/L Potassium (3.5-5.1) mmol/L Chloride (98-107) mmol/L Carbon Dioxide (22-30) mmol/L Anion Gap mmol/L BUN (7-17) mg/dL Creatinine (0.52-1.04) mg/dL Est GFR (CKD-EPI)AfAm (>60 ml/min/1.73 sqM) Est GFR (CKD-EPI)NonAf (>60 ml/min/1.73 sqM) Glucose (74-99) mg/dL POC Glucose (mg/dL) 81 (75-99) mg/dL POC Glu Truck Rep[employer] Supervisor ID Rae Aguilar Plasma Lactic Acid Vladislav (0.7-2.0) mmol/L Calcium (8.4-10.2) mg/dL Total Bilirubin (0.2-1.3) mg/dL AST (14-36) U/L ALT (4-34) U/L Alkaline Phosphatase (38-126) U/L Total Protein (6.3-8.2) g/dL Albumin (3.5-5.0) g/dL Urine Color Yellow Urine Appearance Cloudy H (Clear) Urine pH 5.5 (5.0-8.0) Ur Specific [place] 1.035 (1.001-1.035) Urine Protein 1+ H (Negative) Urine Glucose (UA) Negative (Negative) Urine Ketones Trace H (Negative) Urine Blood Trace H (Negative) Urine Nitrite Negative (Negative) Urine Bilirubin Negative (Negative) Urine Urobilinogen 6.0 (<2.0) mg/dL Ur Leukocyte Esterase Large H (Negative) Urine RBC 13 H (0-5) /hpf Urine WBC 38 H (0-5) /hpf Ur Squamous Epith Cells 3 (0-4) /hpf Urine Bacteria Rare H (None) /hpf Urine Mucus Many H (None) /hpf Urine Opiates Screen Not Detected (NotDetected) Ur Oxycodone Screen Not Detected (NotDetected) Urine Methadone Screen Not Detected (NotDetected) Ur Propoxyphene Screen Not Detected (NotDetected) Ur Barbiturates Screen Not Detected (NotDetected) U Tricyclic Antidepress Not Detected (NotDetected) Ur Phencyclidine Scrn Not Detected (NotDetected) Ur Amphetamines Screen Not Detected (NotDetected) U Methamphetamines Scrn Not Detected (NotDetected) U Benzodiazepines Scrn Not Detected (NotDetected) Urine Cocaine Screen Not Detected (NotDetected) U Marijuana (THC) Screen Detected H (NotDetected) 05/30/20 05/30/20 Range/Units 02:56 02:56 WBC (4.0-11.0) k/uL RBC (3.80-5.40) m/uL Hgb (11.4-16.0) gm/dL Hct (34.0-46.0) % MCV (80.0-100.0) fL MCH (25.0-35.0) pg MCHC (31.0-37.0) g/dL RDW (11.5-15.5) % Plt Count (150-450) k/uL Neutrophils % % Lymphocytes % % Monocytes % % Eosinophils % % Basophils % % Neutrophils # (1.3-7.7) k/uL Lymphocytes # (1.0-4.8) k/uL Monocytes # (0-1.0) k/uL Eosinophils # (0-0.7) k/uL Basophils # (0-0.2) k/uL Sodium 137 (137-145) mmol/L Potassium 3.5 (3.5-5.1) mmol/L Chloride 108 H (98-107) mmol/L Carbon Dioxide 20 L (22-30) mmol/L Anion Gap 9 mmol/L BUN 8 (7-17) mg/dL Creatinine 0.75 (0.52-1.04) mg/dL Est GFR (CKD-EPI)AfAm >90 (>60 ml/min/1.73 sqM) Est GFR (CKD-EPI)NonAf >90 (>60 ml/min/1.73 sqM) Glucose 74 (74-99) mg/dL POC Glucose (mg/dL) (75-99) mg/dL POC Glu Truck Repair Supervisor ID Plasma Lactic Acid Vladislav 1.1 (0.7-2.0) mmol/L Calcium 9.4 (8.4-10.2) mg/dL Total Bilirubin 1.4 H (0.2-1.3) mg/dL AST 22 (14-36) U/L ALT 13 (4-34) U/L Alkaline Phosphatase 83 (38-126) U/L Total Protein 7.1 (6.3-8.2) g/dL Albumin 4.4 (3.5-5.0) g/dL Urine Color Urine Appearance (Clear) Urine pH (5.0-8.0) Ur Specific [place] (1.001-1.035) Urine Protein (Negative) Urine Glucose (UA) (Negative) Urine Ketones (Negative) Urine Blood (Negative) Urine Nitrite (Negative) Urine Bilirubin (Negative) Urine Urobilinogen (<2.0) mg/dL Ur Leukocyte Esterase (Negative) Urine RBC (0-5) /hpf Urine WBC (0-5) /hpf Ur Squamous Epith Cells (0-4) /hpf Urine Bacteria (None) /hpf Urine Mucus (None) /hpf Urine Opiates Screen (NotDetected) Ur Oxycodone Screen (NotDetected) Urine Methadone Screen (NotDetected) Ur Propoxyphene Screen (NotDetected) Ur Barbiturates Screen (NotDetected) U Tricyclic Antidepress (NotDetected) Ur Phencyclidine Scrn (NotDetected) Ur Amphetamines Screen (NotDetected) U Methamphetamines Scrn (NotDetected) U Benzodiazepines Scrn (NotDetected) Urine Cocaine Screen (NotDetected) U Marijuana (THC) Screen (NotDetected) - EKG Data -: EKG Interpreted by Me EKG shows normal: sinus rhythm EKG Comments: EKG was obtained due to complaint of seizure, EKG was obtained at 3:19 AM, rate is 60 rhythm sinus marked sinus arrhythmia, RI 128, Carafate 4, QTC [address] elevations or depressions no evidence of acute ischemia or infarction. Disposition Clinical Impression: Seizure-like activity Disposition: HOME SELF-CARE Condition: Stable Instructions (If sedation given, give patient instructions): Recurrent Seizures in Adults (ED) Is patient prescribed a controlled substance at d/c from ED?: No Referrals: None,Stated [Primary Care Provider] - 1-2 days
[2020-05-30 02:56] LABS: Glucose,Whole Blood 81 mg/dL (75-99)
[2020-05-30 03:06] LABS: Basophils % (A) 1 %; Eosinophils # (A) 0.2 k/uL (0-0.7); Eosinophils % (A) 5 %; HCT 37.3 % (34.0-46.0); HGB 12.3 gm/dL (11.4-16.0); Lymphocytes # (A) 2.4 k/uL (1.0-4.8); Lymphocytes % (A) 52 %; MCH 27.9 pg (25.0-35.0); MCHC 32.9 g/dL (31.0-37.0); MCV 84.6 fL (80.0-100.0); Mean Platelet Volume 7.5; Monocytes # (A) 0.2 k/uL (0-1.0); Monocytes % (A) 5 %; Neutrophils # (A) 1.6 k/uL (1.3-7.7); Neutrophils % (A) 36 %; Platelet Count 213 k/uL (150-450); RBC 4.41 m/uL (3.80-5.40); RDW 13.5 % (11.5-15.5); WBC 4.6 k/uL (4.0-11.0)
[2020-05-30 03:18] LABS: ALT 13 U/L (4-34); AST 22 U/L (14-36); African American GFR (CKD) >90 (>60 ml/min/1.73 sqM); Albumin 4.4 g/dL (3.5-5.0); Alkaline Phosphatase 83 U/L (38-126); Anion Gap 9 mmol/L; Blood Urea Nitrogen 8 mg/dL (7-17); Calcium 9.4 mg/dL (8.4-10.2); Carbon Dioxide 20 mmol/L (22-30); Chloride 108 mmol/L (98-107); Glucose 74 mg/dL (74-99); Non-African American GFR(CKD) >90 (>60 ml/min/1.73 sqM); Potassium 3.5 mmol/L (3.5-5.1); Sodium 137 mmol/L (137-145); Total Bilirubin 1.4 mg/dL (0.2-1.3); Total Protein 7.1 g/dL (6.3-8.2)
[2020-05-30 03:37] LABS: Appearance,Urine Cloudy (Clear); Bacteria,Urine Rare /hpf; Bilirubin,Urine Negative (Negative); Blood,Urine Trace (Negative); Color,Urine Yellow; Glucose,Urine (UA) Negative (Negative); Ketones,Urine Trace (Negative); Leukocyte Esterase,Urine Large (Negative); Mucus,Urine Many /hpf; Nitrite,Urine Negative (Negative); PH, Urine 5.5 (5.0-8.0); Protein,Urine 1+ (Negative); RBC,Urine 13 /hpf (0-5); Specific Gravity,Urine 1.035 (1.001-1.035); Squamous Epithelial Cell,Urine 3 /hpf (0-4); WBC,Urine 38 /hpf (0-5)
[2020-05-30 03:40] LABS: Amphetamine Screen,Urine Not Detected (NotDetected); Barbiturate Screen,Urine Not Detected (NotDetected); Benzodiazepines Screen,Urine Not Detected (NotDetected); Cocaine Screen,Urine Not Detected (NotDetected); Methadone Screen, Urine Not Detected (NotDetected); Opiate Screen,Urine Not Detected (NotDetected); Oxycodone Screen, Urine Not Detected (NotDetected); Phencyclidine Screen,Urine Not Detected (NotDetected); Tricyclic Antidepressant,Urine Not Detected (NotDetected); Urn Cannabinoid Scrn Detected (NotDetected)
[2020-05-30 05:22] VITALS: BP 111/73; PULSE 83; TEMP 98.2
== END 2020-05-30 05:22 | disposition home or self-care (01) ==
LOC: EC 01:51
DX: R56.9 Unspecified convulsions (principal); F17.200 Nicotine dependence, unspecified, uncomplicated; Z91.048 Other nonmedicinal substance allergy status; Z91.010 Allergy to peanuts; Z72.820 Sleep deprivation
CPT/HCPCS: 36415; 80053; 80306; 81001; 83605; 85025; 93005; 96360; 99284

== ENCOUNTER 2020-07-06 12:29 | Emergency (ER) | payer OTHER ==
[2020-07-06 12:43] VITALS: BP 123/75; PULSE 86; RESP 18; TEMP 99
[2020-07-06] MEDS ORDERED: Acetaminophen-Codeine 300-30mg TAB PO STA (13:05)
[2020-07-06] MEDS ORDERED: AMOXIC-POT CLAV 875MG STARTER PACK 2 TAB BTL PO STA (13:05)
--- NOTE | 2020-07-06 13:12 | ED ---
ENT HPI - General Source: patient, RN notes reviewed, old records reviewed Mode of arrival: ambulatory <JerryinocencioSafia - Last Filed: 07/07/20 06:48> <Chaya Burroughs - Last Filed: 07/09/20 21:51> - General Chief complaint: Dental/Oral Stated complaint: facial pain Time Seen by Provider: 07/06/20 12:45 - History of Present Illness Initial comments: 19-year-old female presents emergency department today for evaluation with complaints of upper and lower right-sided dental pain. She believes that she is having pain from her wisdom teeth and she has reportedly broken in the past. Patient reports that she's had no swelling or pus drainage from her mouth. Patient reports that she does not have a dentist at this time. (Safia Flor) - Related Data Home Medications Medication Instructions Recorded Confirmed Vit,Calc78/Iron/Folic 1 each PO DAILY 12/01/19 01/01/20 [Pretab 29 mg-1 mg Tablet] Previous Rx's Medication Instructions Recorded Amoxic-Pot Clav 875-125Mg 1 tab PO Q12HR #20 tablet 07/06/20 [Augmentin 875-125] Allergies Allergy/AdvReac Type Severity Reaction Status Date / Time bee pollen Allergy Anaphylaxis Verified 07/06/20 12:43 grass pollen Allergy Dyspnea Verified 07/06/20 12:43 peanut Allergy Swelling Verified 07/06/20 12:43 DUST Allergy Dyspnea Uncoded 07/06/20 12:43 Review of Systems ROS Other: All systems not noted in ROS Statement are negative. <Michelle Florily - Last Filed: 07/07/20 06:48> ROS Other: All systems not noted in ROS Statement are negative. <Chaya Burroughs - Last Filed: 07/09/20 21:51> ROS Statement: Those systems with pertinent positive or pertinent negative responses have been documented in the HPI. Past Medical History Past Medical History: Asthma, GERD/Reflux Additional Past Medical History / Comment(s): stress seizures, History of Any Multi-Drug Resistant Organisms: None Reported Past Surgical History: Tonsillectomy Additional Past Surgical History / Comment(s): nose surgery, Past Anesthesia/Blood Transfusion Reactions: No Reported Reaction Past Psychological History: ADD/ADHD, Bipolar, Depression Smoking Status: Current every day smoker Past Alcohol Use History: None Reported Past Drug Use History: Marijuana - Past Family History Brother(s) Family Medical History: Asthma Additional Family Medical History / Comment(s): seasonal allergies Mother Family Medical History: Cancer Additional Family Medical History / Comment(s): bone and breast cancer, per pt. asthma. hernia <ChachoSafia - Last Filed: 07/07/20 06:48> General Exam General appearance: alert, in no apparent distress Head exam: Present: atraumatic, normocephalic, normal inspection Eye exam: Present: normal appearance, PERRL, EOMI. Absent: scleral icterus, conjunctival injection, periorbital swelling ENT exam: Present: normal exam, mucous membranes moist, other (Broken right upper wisdom tooth) Neck exam: Present: normal inspection. Absent: tenderness, meningismus, lymphadenopathy Respiratory exam: Present: normal lung sounds bilaterally. Absent: respiratory distress, wheezes, rales, rhonchi, stridor Cardiovascular Exam: Present: regular rate, normal rhythm, normal heart sounds. Absent: systolic murmur, diastolic murmur, rubs, gallop, clicks GI/Abdominal exam: Present: soft, normal bowel sounds. Absent: distended, tenderness, guarding, rebound, rigid Extremities exam: Present: normal inspection, full ROM, normal capillary refill. Absent: tenderness, pedal edema, joint swelling, calf tenderness Back exam: Present: normal inspection Neurological exam: Present: alert, oriented X3, CN II-XII intact Psychiatric exam: Present: normal affect, normal mood Skin exam: Present: warm, dry, intact, normal color. Absent: rash <Safia Flor - Last Filed: 07/07/20 06:48> - General Exam Comments Initial Comments: 19-year-old female. Alert and oriented 3. No distress. (Safia Flor) Course Vital Signs 07/06/20 12:39 Temperature 99 F Pulse Rate 86 Respiratory 18 Rate Blood Pressure 123/75 O2 Sat by Pulse 100 Oximetry Medical Decision Making <Michelle Florily - Last Filed: 07/07/20 06:48> <Chaya Burroughs - Last Filed: 07/09/20 21:51> - Medical Decision Making 1-year-old female presents here today for evaluation for dental pain. She is related to broken was obtained. She has no drainable abscess at this time. Discussed putting the Patient on antibiotic, and close follow-up with primary care doctor. (Safia Flor) I was available for consultation in the emergency department. The history and physical exam were done by the midlevel provider. I was consulted for this patients care. I reviewed the case with the midlevel provider and based on their presentation of the patient, I agree with the assessment, medical decision making and plan of care as documented. Chart was dictated using [employer] dictation software. Attempts were made to correct any dictation errors however some typographical errors may persist. Patient was seen during a national state of emergency due to the Covid-19 pandemic. (Chaya Burroughs) Disposition Is patient prescribed a controlled substance at d/c from ED?: No Time of Disposition: 13:12 <Safia Flor - Last Filed: 07/07/20 06:48> <Chaya Burroughs - Last Filed: 07/09/20 21:51> Clinical Impression: Fracture of tooth, Dental caries Disposition: HOME SELF-CARE Condition: Good Instructions (If sedation given, give patient instructions): Toothache (ED) Additional Instructions: Please use medication as discussed. Please follow up with family doctor if symptoms have not improved over the next two days. Please return to the emergency room if your symptoms increase or worsen or for any other concerns. [facility] [place] [id number] [employer] [place] [address] [phone] (existing clients only) For new clients: [phone] 1st consult: $50 (includes Xrays) Usually 30% less then private dentist for visits after. [employer] [facility] [employer] Have to pay $50 for Xrays anmd rest is covered. [phone] Prescriptions: Amoxic-Pot Clav 875-125Mg [Augmentin 875-125] 1 tab PO Q12HR #20 tablet Referrals: None,Stated [REFERRING] - 1-2 days Bill Eaton DDS [STAFF PHYSICIAN] - 1-2 days
== END 2020-07-06 13:28 | disposition home or self-care (01) ==
LOC: EC 12:29
DX: S02.5XXA Fracture of tooth (traumatic), initial encounter for closed fracture (principal); K02.9 Dental caries, unspecified; F17.200 Nicotine dependence, unspecified, uncomplicated; Z91.030 Bee allergy status; Z91.048 Other nonmedicinal substance allergy status; Z91.010 Allergy to peanuts; X58.XXXA Exposure to other specified factors, initial encounter
CPT/HCPCS: 99284

== ENCOUNTER 2020-08-18 05:56 | Emergency (ER) | payer OTHER ==
[2020-08-18 06:09] LABS: Glucose,Whole Blood 92 mg/dL (75-99)
[2020-08-18] MEDS ORDERED: SODIUM CHLORIDE 0.9% 1,000 ML IV STA (06:09)
[2020-08-18 06:11] VITALS: TEMP 98.6
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
[2020-08-18 06:34] LABS: Basophils % (A) 1 %; Eosinophils % (A) 5 %; HCT 37.5 % (34.0-46.0); HGB 13.1 gm/dL (11.4-16.0); Lymphocytes # (A) 2.6 k/uL (1.0-4.8); Lymphocytes % (A) 46 %; MCH 30.1 pg (25.0-35.0); MCHC 34.9 g/dL (31.0-37.0); MCV 86.3 fL (80.0-100.0); Monocytes % (A) 4 %; Neutrophils # (A) 2.5 k/uL (1.3-7.7); Neutrophils % (A) 43 %; Platelet Count 196 k/uL (150-450); RBC 4.34 m/uL (3.80-5.40); RDW 12.4 % (11.5-15.5); WBC 5.7 k/uL (4.0-11.0)
[2020-08-18 06:35] LABS: Eosinophils # (A) 0.3 k/uL (0-0.7); Monocytes # (A) 0.2 k/uL (0-1.0)
[2020-08-18 06:40] LABS: Appearance,Urine Cloudy (Clear); Bacteria,Urine Occasional /hpf; Bilirubin,Urine Negative (Negative); Blood,Urine Negative (Negative); Color,Urine Yellow; Glucose,Urine (UA) Negative (Negative); Ketones,Urine Negative (Negative); Leukocyte Esterase,Urine Large (Negative); Mucus,Urine Rare /hpf; Nitrite,Urine Negative (Negative); Protein,Urine Trace (Negative); Specific Gravity,Urine 1.023 (1.001-1.035); Squamous Epithelial Cell,Urine 35 /hpf (0-4); Urobilinogen,Urine <2.0 mg/dL (<2.0); WBC,Urine 19 /hpf (0-5)
[2020-08-18 06:43] LABS: ALT 9 U/L (4-34); AST 19 U/L (14-36); African American GFR (CKD) >90 (>60 ml/min/1.73 sqM); Albumin 3.9 g/dL (3.5-5.0); Alkaline Phosphatase 71 U/L (38-126); Anion Gap 9 mmol/L; Blood Urea Nitrogen 12 mg/dL (7-17); Calcium 9.1 mg/dL (8.4-10.2); Carbon Dioxide 18 mmol/L (22-30); Chloride 112 mmol/L (98-107); Glucose 86 mg/dL (74-99); Non-African American GFR(CKD) 89 (>60 ml/min/1.73 sqM); Potassium 3.5 mmol/L (3.5-5.1); Sodium 139 mmol/L (137-145); Total Bilirubin 0.6 mg/dL (0.2-1.3); Total Protein 6.7 g/dL (6.3-8.2)
[2020-08-18 07:02] VITALS: BP 187/69; PULSE 59; RESP 17
--- NOTE | 2020-08-18 07:22 | CT ---
EXAMINATION TYPE: CT brain liz wo con DATE OF EXAM: 08/18/2020 COMPARISON: 08/17/2018 HISTORY: Seizures, fall CT DLP: 1300.8 mGycm, Automated exposure control for dose reduction was used. CONTRAST: Patient injected with 0 mL of Isovue 300. CT of the brain is performed utilizing 3 mm thick sections through the posterior fossa and 3 mm thick sections through the remaining calvarium. Study is performed within 24 hours of arrival to the hospital. No abnormal hyperdensity is present to suggest an acute intracranial hemorrhage. No mass lesion is evident. No acute infarcts are evident. Ventricles and sulci are appropriate for the patient age. Paranasal sinuses and mastoid air cells within the [id number] are clear. IMPRESSIONS: 1. Normal CT brain. CT cervical spine. COMPARISON: None CT of the cervical spine is performed in the axial plane at 2 mm thick sections. Reconstructed image s in the coronal, and sagittal plane are reviewed on the computer. No acute fractures are evident. Vertebral body alignment is normal. Disc heights are preserved. Vertebral body heights are preserved. No spinal canal stenosis is evident. No neural foraminal stenosis is evident. IMPRESSIONS: 1. Normal CT cervical spine.
--- NOTE | 2020-08-18 08:10 | XR ---
EXAMINATION TYPE: XR chest 2V DATE OF EXAM: 08/18/2020 COMPARISON: Chest x-ray May 31, 2016 HISTORY: Chest pain after fall injury. History of seizures. TECHNIQUE: Frontal and lateral views of the chest are obtained. FINDINGS: Overlying EKG leads on current study. There is no focal air space opacity, pleural effusion , or pneumothorax seen. The cardiac silhouette size remains within normal limits. The osseous stru ctures are intact. IMPRESSION: No acute cardiopulmonary process. No significant change from prior.
== END 2020-08-18 08:56 | disposition home or self-care (01) ==
LOC: EC 05:56
DX: G40.909 Epilepsy, unspecified, not intractable, without status epilepticus (principal); J45.909 Unspecified asthma, uncomplicated; F41.9 Anxiety disorder, unspecified; F90.9 Attention-deficit hyperactivity disorder, unspecified type; F17.200 Nicotine dependence, unspecified, uncomplicated; Z79.3 Long term (current) use of hormonal contraceptives; Z79.899 Other long term (current) drug therapy; Z91.010 Allergy to peanuts; Z91.030 Bee allergy status; Z91.048 Other nonmedicinal substance allergy status
CPT/HCPCS: 36415; 70450; 71046; 72125; 80053; 80201; 81001; 81025; 84484; 85025; 93005; 96360; 96361; 99285

== ENCOUNTER 2021-05-26 05:08 | Emergency (ER) | payer OTHER ==
[2021-05-26] MEDS ORDERED: SODIUM CHLORIDE 0.9% 1,000 ML IV STA (05:43)
[2021-05-26] MEDS ORDERED: IPRATROPIUM-ALBUTEROL 3 ML NEB INHALATION STA (05:43)
[2021-05-26] MEDS ORDERED: ONDANSETRON 4 MG/2 ML VIAL IVP STA (05:43)
[2021-05-26] MEDS ORDERED: DEXAMETHASONE SOD PHOSPHATE 4 MG/ML 1 ML VIAL IV STA (05:43)
[2021-05-26] MEDS ORDERED: KETOROLAC 15 MG/ML 1 ML VIAL IVP STA (05:44)
--- NOTE | 2021-05-26 05:44 | ED ---
URI HPI - General Chief Complaint: Upper Respiratory Infection Stated Complaint: Difficult Breathing Time Seen by Provider: 05/26/21 05:14 Source: patient, RN notes reviewed, old records reviewed Mode of arrival: ambulatory Limitations: no limitations - History of Present Illness Initial Comments: This is a 20-year-old female to the emergency room today. States she is presenting for evaluation regards to not feeling well. Patient states she hasn't been feeling well for quite some time. She is relatively now specific complaints otherwise. Some cough congestion symptoms going on for a week family members also had similar symptoms but have gotten over it. Patient denying fevers. Patient has no real significant medical history takes no medications denies drug or alcohol abuse or smoking. Patient has coronavirus exposure MD Complaint: cough, sore throat, nasal congestion -: week(s) Severity: mild Severity scale (1-10): 2 Consistency: constant Improves With: nothing Worsens With: nothing Associated Symptoms: chills, myalgias, rhinorrhea, nasal congestion, sore throat Treatments Prior to Arrival: none - Related Data Home Medications Medication Instructions Recorded Confirmed Calcium Carbonate [Calcium] 600 mg PO DAILY 08/18/20 08/18/20 Fluticasone Propionate [Flovent 1 puff INHALATION RT-BID 08/18/20 08/18/20 Hfa 110 mcg] Loratadine [Claritin] 10 mg PO DAILY 08/18/20 08/18/20 Medroxyprogesterone Acetate 150 mg IM Q90D 08/18/20 08/18/20 [Depo-Provera] QUEtiapine [SEROquel] 100 mg PO HS 08/18/20 08/18/20 Sertraline HCl [Zoloft] 50 mg PO DAILY 08/18/20 08/18/20 Topiramate [Topamax] 100 mg PO DAILY 08/18/20 08/18/20 Previous Rx's Medication Instructions Recorded Azithromycin [Zithromax Z-pack (6 0 mg PO DIRECTED #1 packet 05/26/21 tabs)] Allergies Allergy/AdvReac Type Severity Reaction Status Date / Time bee pollen Allergy Anaphylaxis Verified 05/26/21 05:15 grass pollen Allergy Dyspnea Verified 05/26/21 05:15 peanut Allergy Swelling Verified 05/26/21 05:15 DUST Allergy Dyspnea Uncoded 05/26/21 05:15 Review of Systems ROS Statement: Those systems with pertinent positive or pertinent negative responses have been documented in the HPI. ROS Other: All systems not noted in ROS Statement are negative. Past Medical History Past Medical History: Asthma, GERD/Reflux, Seizure Disorder Additional Past Medical History / Comment(s): stress seizures, History of Any Multi-Drug Resistant Organisms: None Reported Past Surgical History: Tonsillectomy Additional Past Surgical History / Comment(s): nose surgery, Past Anesthesia/Blood Transfusion Reactions: No Reported Reaction Past Psychological History: ADD/ADHD, Bipolar, Depression Smoking Status: Current every day smoker Past Alcohol Use History: Occasional Past Drug Use History: Marijuana - Past Family History Brother(s) Family Medical History: Asthma Additional Family Medical History / Comment(s): seasonal allergies Mother Family Medical History: Cancer Additional Family Medical History / Comment(s): bone and breast cancer, per pt. asthma. hernia General Exam General appearance: alert, in no apparent distress, anxious Head exam: Present: atraumatic, normocephalic, normal inspection Eye exam: Present: normal appearance, PERRL, EOMI. Absent: scleral icterus, conjunctival injection, periorbital swelling ENT exam: Present: normal exam, mucous membranes moist Neck exam: Present: normal inspection. Absent: tenderness, meningismus, lymphadenopathy Respiratory exam: Present: wheezes. Absent: respiratory distress, rales, rhonchi, stridor Cardiovascular Exam: Present: regular rate, normal rhythm, normal heart sounds. Absent: systolic murmur, diastolic murmur, rubs, gallop, clicks GI/Abdominal exam: Present: soft, normal bowel sounds. Absent: distended, tenderness, guarding, rebound, rigid Extremities exam: Present: normal inspection, full ROM, normal capillary refill. Absent: tenderness, pedal edema, joint swelling, calf tenderness Back exam: Present: normal inspection Neurological exam: Present: alert, oriented X3, CN II-XII intact Psychiatric exam: Present: normal affect, normal mood Skin exam: Present: warm, dry, intact, normal color. Absent: rash Course Vital Signs 05/26/21 05/26/21 05/26/21 05:11 05:53 06:04 Temperature 99 F Pulse Rate 88 88 90 Respiratory 19 Rate Blood Pressure 130/87 O2 Sat by Pulse 98 Oximetry 05/26/21 07:50 Temperature 97.7 F Pulse Rate 70 Respiratory 18 Rate Blood Pressure 121/51 O2 Sat by Pulse 100 Oximetry - Reevaluation(s) Reevaluation #1: Medical record is reviewed Patient symptoms are significantly improved here in the ER Patient informed of results and questions are answered Patient is in no acute distress Patient feels comfortable for discharge home Medical Decision Making - Medical Decision Making 20 female to the emergency department today for cough congestion runny nose. Patient feels like something is wrong informed of normal lab testing and feels happy with that, patient has no significant complaints and can be discharged home - Lab Data Result diagrams: 05/26/21 06:23 05/26/21 06:23 Lab Results 05/26/21 05/26/21 05/26/21 Range/Units 06:23 06:23 06:23 WBC 7.7 (3.8-10.6) k/uL RBC 4.37 (3.80-5.40) m/uL Hgb 13.6 (11.4-16.0) gm/dL Hct 39.1 (34.0-46.0) % MCV 89.4 (80.0-100.0) fL MCH 31.1 (25.0-35.0) pg MCHC 34.8 (31.0-37.0) g/dL RDW 12.7 (11.5-15.5) % Plt Count 226 (150-450) k/uL MPV 8.4 Neutrophils % 61 % Lymphocytes % 26 % Monocytes % 5 % Eosinophils % 5 % Basophils % 1 % Neutrophils # 4.7 (1.3-7.7) k/uL Lymphocytes # 2.0 (1.0-4.8) k/uL Monocytes # 0.4 (0-1.0) k/uL Eosinophils # 0.4 (0-0.7) k/uL Basophils # 0.0 (0-0.2) k/uL Sodium 137 (137-145) mmol/L Potassium 3.1 L (3.5-5.1) mmol/L Chloride 108 H (98-107) mmol/L Carbon Dioxide 20 L (22-30) mmol/L Anion Gap 9 mmol/L BUN 4 L (7-17) mg/dL Creatinine 0.65 (0.52-1.04) mg/dL Est GFR (CKD-EPI)AfAm >90 (>60 ml/min/1.73 sqM) Est GFR (CKD-EPI)NonAf >90 (>60 ml/min/1.73 sqM) Glucose 102 H (74-99) mg/dL Calcium 9.4 (8.4-10.2) mg/dL Phosphorus 3.8 (2.5-4.5) mg/dL Magnesium 1.8 (1.6-2.3) mg/dL Total Bilirubin 0.9 (0.2-1.3) mg/dL AST 22 (14-36) U/L ALT 9 (4-34) U/L Alkaline Phosphatase 88 (38-126) U/L Lactate Dehydrogenase 388 (313-618) U/L C-Reactive Protein 2.2 H (<1.0) mg/dL Total Protein 7.2 (6.3-8.2) g/dL Albumin 4.4 (3.5-5.0) g/dL Urine Color Yellow Urine Appearance Cloudy H (Clear) Urine pH 6.0 (5.0-8.0) Ur Specific [place] 1.025 (1.001-1.035) Urine Protein Trace H (Negative) Urine Glucose (UA) Negative (Negative) Urine Ketones Negative (Negative) Urine Blood Negative (Negative) Urine Nitrite Negative (Negative) Urine Bilirubin Negative (Negative) Urine Urobilinogen 4.0 (<2.0) mg/dL Ur Leukocyte Esterase Moderate H (Negative) Urine RBC 1 (0-5) /hpf Urine WBC 7 H (0-5) /hpf Ur Squamous Epith Cells 4 (0-4) /hpf Urine Bacteria Rare H (None) /hpf Urine Mucus Many H (None) /hpf Urine HCG, Qual (Not Detectd) 05/26/21 Range/Units 06:23 WBC (3.8-10.6) k/uL RBC (3.80-5.40) m/uL Hgb (11.4-16.0) gm/dL Hct (34.0-46.0) % MCV (80.0-100.0) fL MCH (25.0-35.0) pg MCHC (31.0-37.0) g/dL RDW (11.5-15.5) % Plt Count (150-450) k/uL MPV Neutrophils % % Lymphocytes % % Monocytes % % Eosinophils % % Basophils % % Neutrophils # (1.3-7.7) k/uL Lymphocytes # (1.0-4.8) k/uL Monocytes # (0-1.0) k/uL Eosinophils # (0-0.7) k/uL Basophils # (0-0.2) k/uL Sodium (137-145) mmol/L Potassium (3.5-5.1) mmol/L Chloride (98-107) mmol/L Carbon Dioxide (22-30) mmol/L Anion Gap mmol/L BUN (7-17) mg/dL Creatinine (0.52-1.04) mg/dL Est GFR (CKD-EPI)AfAm (>60 ml/min/1.73 sqM) Est GFR (CKD-EPI)NonAf (>60 ml/min/1.73 sqM) Glucose (74-99) mg/dL Calcium (8.4-10.2) mg/dL Phosphorus (2.5-4.5) mg/dL Magnesium (1.6-2.3) mg/dL Total Bilirubin (0.2-1.3) mg/dL AST (14-36) U/L ALT (4-34) U/L Alkaline Phosphatase (38-126) U/L Lactate Dehydrogenase (313-618) U/L C-Reactive Protein (<1.0) mg/dL Total Protein (6.3-8.2) g/dL Albumin (3.5-5.0) g/dL Urine Color Urine Appearance (Clear) Urine pH (5.0-8.0) Ur Specific [place] (1.001-1.035) Urine Protein (Negative) Urine Glucose (UA) (Negative) Urine Ketones (Negative) Urine Blood (Negative) Urine Nitrite (Negative) Urine Bilirubin (Negative) Urine Urobilinogen (<2.0) mg/dL Ur Leukocyte Esterase (Negative) Urine RBC (0-5) /hpf Urine WBC (0-5) /hpf Ur Squamous Epith Cells (0-4) /hpf Urine Bacteria (None) /hpf Urine Mucus (None) /hpf Urine HCG, Qual Not Detected (Not Detectd) - Radiology Data Radiology results: report reviewed (Chest x-rays negative for acute disease), image reviewed Disposition Clinical Impression: Bronchitis, Upper respiratory tract infection Disposition: HOME SELF-CARE Condition: Fair Instructions (If sedation given, give patient instructions): Upper Respiratory Infection (ED) Prescriptions: Azithromycin [Zithromax Z-pack (6 tabs)] 0 mg PO DIRECTED #1 packet Is patient prescribed a controlled substance at d/c from ED?: No Referrals: None,Stated [Primary Care Provider] - 1-2 days
[2021-05-26] MEDS ORDERED: AZITHROMYCIN 500 MG in SODIUM CHLORIDE 0.9% 250 ML IVPB ONE (06:00)
--- NOTE | 2021-05-26 06:14 | XR ---
EXAMINATION TYPE: XR chest 1V portable DATE OF EXAM: 05/26/2021 COMPARISON: 08/18/2020 HISTORY: Short of breath TECHNIQUE: Single view FINDINGS: There is no heart failure nor confluent pneumonic infiltrate. Costophrenic angles are clear . Bony thorax is intact. Heart size is normal. IMPRESSION: No active cardiopulmonary disease. No change.
[2021-05-26 06:34] LABS: Basophils % (A) 1 %; Eosinophils # (A) 0.4 k/uL (0-0.7); Eosinophils % (A) 5 %; HCT 39.1 % (34.0-46.0); HGB 13.6 gm/dL (11.4-16.0); Lymphocytes % (A) 26 %; MCH 31.1 pg (25.0-35.0); MCHC 34.8 g/dL (31.0-37.0); MCV 89.4 fL (80.0-100.0); Mean Platelet Volume 8.4; Monocytes # (A) 0.4 k/uL (0-1.0); Monocytes % (A) 5 %; Neutrophils # (A) 4.7 k/uL (1.3-7.7); Neutrophils % (A) 61 %; Platelet Count 226 k/uL (150-450); RBC 4.37 m/uL (3.80-5.40); RDW 12.7 % (11.5-15.5); WBC 7.7 k/uL (3.8-10.6)
[2021-05-26 06:45] LABS: Appearance,Urine Cloudy (Clear); Bacteria,Urine Rare /hpf; Bilirubin,Urine Negative (Negative); Blood,Urine Negative (Negative); Color,Urine Yellow; Glucose,Urine (UA) Negative (Negative); Ketones,Urine Negative (Negative); Leukocyte Esterase,Urine Moderate (Negative); Mucus,Urine Many /hpf; Nitrite,Urine Negative (Negative); Protein,Urine Trace (Negative); RBC,Urine 1 /hpf (0-5); Specific Gravity,Urine 1.025 (1.001-1.035); Squamous Epithelial Cell,Urine 4 /hpf (0-4); WBC,Urine 7 /hpf (0-5)
[2021-05-26 06:55] LABS: ALT 9 U/L (4-34); AST 22 U/L (14-36); African American GFR (CKD) >90 (>60 ml/min/1.73 sqM); Albumin 4.4 g/dL (3.5-5.0); Alkaline Phosphatase 88 U/L (38-126); Anion Gap 9 mmol/L; Blood Urea Nitrogen 4 mg/dL (7-17); C Reactive Protein 2.2 mg/dL (<1.0); Calcium 9.4 mg/dL (8.4-10.2); Carbon Dioxide 20 mmol/L (22-30); Chloride 108 mmol/L (98-107); Glucose 102 mg/dL (74-99); LDH 388 U/L (313-618); Magnesium 1.8 mg/dL (1.6-2.3); Non-African American GFR(CKD) >90 (>60 ml/min/1.73 sqM); Phosphorus 3.8 mg/dL (2.5-4.5); Potassium 3.1 mmol/L (3.5-5.1); Sodium 137 mmol/L (137-145); Total Bilirubin 0.9 mg/dL (0.2-1.3); Total Protein 7.2 g/dL (6.3-8.2)
[2021-05-26] MEDS ORDERED: POTASSIUM BICARBONATE/CIT AC 20 MEQ TABLET.EFF PO ONE (07:15)
[2021-05-26 07:53] VITALS: BP 121/51; PULSE 70; RESP 18; TEMP 97.7
== END 2021-05-26 08:13 | disposition home or self-care (01) ==
LOC: EC 05:08
DX: J40 Bronchitis, not specified as acute or chronic (principal); J06.9 Acute upper respiratory infection, unspecified; G40.909 Epilepsy, unspecified, not intractable, without status epilepticus; F17.200 Nicotine dependence, unspecified, uncomplicated; Z79.51 Long term (current) use of inhaled steroids; Z79.899 Other long term (current) drug therapy
CPT/HCPCS: 36415; 94640; 80053; 83615; 83735; 84100; 85025; 86140; 81001; 81025; 71045; 99285; 96365; 96375; J1100; J2405; J0456; J1885

== ENCOUNTER 2022-04-05 21:44 | Emergency (ER) | payer OTHER ==
[2022-04-05] MEDS ORDERED: SODIUM CHLORIDE 0.9% 1,000 ML IV STA (21:57)
[2022-04-05] MEDS ORDERED: PYRIDOXINE 100 MG/ML 1 ML VIAL IVP STA (22:00)
[2022-04-05] MEDS ORDERED: diphenhydrAMINE 50 MG/ML 1 ML VIAL IVP STA (22:00)
--- NOTE | 2022-04-05 22:02 | ED ---
Seizure HPI <Felix Basilio - Last Filed: 04/05/22 23:52> <Bill Birch - Last Filed: 04/07/22 19:54> - General Stated Complaint: Seizures Time Seen by Provider: 04/05/22 21:51 - History of Present Illness Initial Comments: This is a 21-year-old female who is A0. She presents to the emergency department today stating that she has had nausea, vomiting, and diarrhea ongoing for the last week. Patient denying any hematemesis or coffee-ground emesis. Patient found out she was 3 days ago. She states she is probably for 5 weeks . No vaginal discharge or vaginal bleeding. Patient is getting pelvic cramping. Patient denies any fever but has had a runny nose and cough. No headache, no fever or chills, no changes in vision or hearing, no sore throat or difficulty with speech, no neck pain, no chest pain or shortness of breath, pelvic cramping, no other abdominal pain, no changes in urination or bowel movements, no numbness or tingling, no extremity pain, no skin rashes or lesio ns. Past medical, surgical, social, and family history reviewed. Patient states she has been having multiple seizures in her sleep. She states she has not been able to hold down anything. Patient does take the topiramate for seizure control. Patient also on anti-neuroleptic medications, antipsy chotic medications. Patient is a cigarette smoker. Patient states she also drank an extensive amount of alcohol just prior to finding out she was . (Felix Basilio) - Related Data Home Medications Medication Instructions Recorded Confirmed Calcium Carbonate [Calcium] 600 mg PO DAILY 08/18/20 08/18/20 Fluticasone Propionate [Flovent 1 puff INHALATION RT-BID 08/18/20 08/18/20 Hfa 110 mcg] Loratadine [Claritin] 10 mg PO DAILY 08/18/20 08/18/20 Medroxyprogesterone Acetate 150 mg IM Q90D 08/18/20 08/18/20 [Depo-Provera] QUEtiapine [SEROquel] 100 mg PO HS 08/18/20 08/18/20 Sertraline HCl [Zoloft] 50 mg PO DAILY 12/11/20 12/11/20 Topiramate [Topamax] 100 mg PO DAILY 08/18/20 08/18/20 Previous Rx's Medication Instructions Recorded Azithromycin [Zithromax Z-pack (6 0 mg PO DIRECTED #1 packet 05/26/21 tabs)] Allergies Allergy/AdvReac Type Severity Reaction Status Date / Time bee pollen Allergy Anaphylaxis Verified 05/26/21 05:15 grass pollen Allergy Dyspnea Verified 05/26/21 05:15 peanut Allergy Swelling Verified 05/26/21 05:15 DUST Allergy Dyspnea Uncoded 05/26/21 05:15 Review of Systems ROS Other: All systems not noted in ROS Statement are negative. <Felix Basilio - Last Filed: 04/05/22 23:52> ROS Other: All systems not noted in ROS Statement are negative. <Bill Birch - Last Filed: 04/07/22 19:54> ROS Statement: Those systems with pertinent positive or pertinent negative responses have been documented in the HPI. Past Medical History Past Medical History: Asthma, GERD/Reflux, Seizure Disorder Additional Past Medical History / Comment(s): stress seizures, History of Any Multi-Drug Resistant Organisms: None Reported Past Surgical History: Tonsillectomy Additional Past Surgical History / Comment(s): nose surgery, Past Anesthesia/Blood Transfusion Reactions: No Reported Reaction Past Psychological History: ADD/ADHD, Bipolar, Depression Smoking Status: Current every day smoker Past Alcohol Use History: Occasional Past Drug Use History: Marijuana - Past Family History Brother(s) Family Medical History: Asthma Additional Family Medical History / Comment(s): seasonal allergies Mother Family Medical History: Cancer Additional Family Medical History / Comment(s): bone and breast cancer, per pt. asthma. hernia <Felix Basilio - Last Filed: 04/05/22 23:52> General Exam General appearance: alert, anxious, in distress Head exam: Present: atraumatic, normocephalic, normal inspection Eye exam: Present: normal appearance, PERRL, EOMI. Absent: scleral icterus, c onjunctival injection, periorbital swelling ENT exam: Present: normal exam, normal oropharynx, mucous membranes moist, TM's normal bilaterally, normal external ear exam. Absent: mucous membranes dry Neck exam: Present: normal inspection, full ROM. Absent: tenderness, meningismus, lymphadenopathy Respiratory exam: Present: normal lung sounds bilaterally. Absent: respiratory distress, wheezes, rales, rhonchi, stridor Cardiovascular Exam: Present: regular rate, normal rhythm, normal heart sounds. Absent: systolic murmur, diastolic murmur, rubs, gallop, clicks GI/Abdominal exam: Present: soft, normal bowel sounds. Absent: distended, tenderness, guarding, rebound, rigid Extremities exam: Present: normal inspection, full ROM, normal capillary refill. Absent: tenderness, pedal edema, joint swelling, calf tenderness Back exam: Present: normal inspection Neurological exam: Present: alert, oriented X3, CN II-XII intact Psychiatric exam: Present: normal affect, normal mood Skin exam: Present: warm, dry, intact, normal color. Absent: rash <Felix Basilio - Last Filed: 04/05/22 23:52> General appearance: alert, in no apparent distress Head exam: Present: atraumatic, normocephalic, normal inspection Eye exam: Present: normal appearance, PERRL, EOMI. Absent: scleral icterus, conjunctival injection, periorbital swelling ENT exam: Present: normal exam, mucous membranes moist Neck exam: Present: normal inspection. Absent: tenderness, meningismus, lymphadenopathy Respiratory exam: Present: normal lung sounds bilaterally. Absent: respiratory distress, wheezes, rales, rhonchi, stridor Cardiovascular Exam: Present: regular rate, normal rhythm, normal heart sounds. Absent: systolic murmur, diastolic murmur, rubs, gallop, clicks GI/Abdominal exam: Present: soft, normal bowel sounds. Absent: distended, tenderness, guarding, rebound, rigid Extremities exam: Present: normal inspection, full ROM, normal capillary refill. Absent: tenderness, pedal edema, joint swelling, calf tenderness Back exam: Present: normal inspection Neurological exam: Present: alert, oriented X3, CN II-XII intact Psychiatric exam: Present: normal affect, normal mood Skin exam: Present: warm, dry, intact, normal color. Absent: rash <Bill Birch - Last Filed: 04/07/22 19:54> Course <Felix Basilio - Last Filed: 04/05/22 23:52> <Bill Birch - Last Filed: 04/07/22 19:54> Vital Signs 04/05/22 04/06/22 22:04 00:45 Temperature 98.3 F Pulse Rate 70 76 Respiratory 18 18 Rate Blood Pressure 110/67 117/78 O2 Sat by Pulse 97 99 Oximetry - Reevaluation(s) Reevaluation #1: 04/05/22 23:52 Patient has 1+ ketones in the urine. Potassium of 3.2. We'll be replaced. Blood type is O-, however the patient has no vaginal bleeding. (Felix Basilio) medical record is reviewed (Bill Birch) Reevaluation #2: patient improved ok for DC home (Bill Birch) Medical Decision Making - Lab Data Result diagrams: 04/05/22 22:12 04/05/22 22:12 <Felix Basilio - Last Filed: 04/05/22 23:52> - Lab Data Result diagrams: 04/05/22 22:12 04/05/22 22:12 - Radiology Data Radiology results: report reviewed (US shows positive IUP), image reviewed <Bill Birch - Last Filed: 04/07/22 19:54> - Medical Decision Making 21 female [place] in , [place] shows positive IUP, ok for DC home (Bill Birch) - Lab Data Lab Results 04/05/22 04/05/22 04/05/22 Range/Units 22:12 22:12 22:12 WBC 3.8 (3.8-10.6) k/uL RBC 4.10 (3.80-5.40) m/uL Hgb 12.4 (11.4-16.0) gm/dL Hct 36.4 (34.0-46.0) % MCV 88.7 (80.0-100.0) fL MCH 30.2 (25.0-35.0) pg MCHC 34.0 (31.0-37.0) g/dL RDW 12.9 (11.5-15.5) % Plt Count 194 (150-450) k/uL MPV 8.2 Neutrophils % 31 % Lymphocytes % 51 % Monocytes % 9 % Eosinophils % 6 % Basophils % 0 % Neutrophils # 1.2 L (1.3-7.7) k/uL Lymphocytes # 1.9 (1.0-4.8) k/uL Monocytes # 0.3 (0-1.0) k/uL Eosinophils # 0.2 (0-0.7) k/uL Basophils # 0.0 (0-0.2) k/uL Sodium 136 L (137-145) mmol/L Potassium 3.2 L (3.5-5.1) mmol/L Chloride 106 (98-107) mmol/L Carbon Dioxide 22 (22-30) mmol/L Anion Gap 8 mmol/L BUN 3 L (7-17) mg/dL Creatinine 0.52 (0.52-1.04) mg/dL Est GFR (CKD-EPI)AfAm >90 (>60 ml/min/1.73 sqM) Est GFR (CKD-EPI)NonAf >90 (>60 ml/min/1.73 sqM) Glucose 81 (74-99) mg/dL Calcium 8.8 (8.4-10.2) mg/dL Magnesium 1.7 (1.6-2.3) mg/dL Total Bilirubin 0.9 (0.2-1.3) mg/dL AST 19 (14-36) U/L ALT 9 (4-34) U/L Alkaline Phosphatase 75 (38-126) U/L Total Protein 6.8 (6.3-8.2) g/dL Albumin 4.0 (3.5-5.0) g/dL HCG, Quant 70471.0 mIU/mL Urine Color Yellow Urine Appearance Cloudy H (Clear) Urine pH 7.0 (5.0-8.0) Ur Specific [place] 1.008 (1.001-1.035) Urine Protein Negative (Negative) Urine Glucose (UA) Negative (Negative) Urine Ketones 1+ H (Negative) Urine Blood Negative (Negative) Urine Nitrite Negative (Negative) Urine Bilirubin Negative (Negative) Urine Urobilinogen 2.0 (<2.0) mg/dL Ur Leukocyte Esterase Moderate H (Negative) Urine RBC 2 (0-5) /hpf Urine WBC 5 (0-5) /hpf Ur Squamous Epith Cells 16 H (0-4) /hpf Urine Opiates Screen Not Detected (NotDetected) Ur Oxycodone Screen Not Detected (NotDetected) Urine Methadone Screen Not Detected (NotDetected) Ur Propoxyphene Screen Not Detected (NotDetected) Ur Barbiturates Screen Not Detected (NotDetected) U Tricyclic Antidepress Not Detected (NotDetected) Ur Phencyclidine Scrn Not Detected (NotDetected) Ur Amphetamines Screen Not Detected (NotDetected) U Methamphetamines Scrn Not Detected (NotDetected) U Benzodiazepines Scrn Not Detected (NotDetected) Urine Cocaine Screen Not Detected (NotDetected) U Marijuana (THC) Screen Detected H (NotDetected) Coronavirus (PCR) (Not Detectd) Blood Type Blood Type Recheck Bld Type Recheck Status Antibody Screen Spec Expiration Date 04/05/22 04/05/22 Range/Units 22:12 22:18 WBC (3.8-10.6) k/uL RBC (3.80-5.40) m/uL Hgb (11.4-16.0) gm/dL Hct (34.0-46.0) % MCV (80.0-100.0) fL MCH (25.0-35.0) pg MCHC (31.0-37.0) g/dL RDW (11.5-15.5) % Plt Count (150-450) k/uL MPV Neutrophils % % Lymphocytes % % Monocytes % % Eosinophils % % Basophils % % Neutrophils # (1.3-7.7) k/uL Lymphocytes # (1.0-4.8) k/uL Monocytes # (0-1.0) k/uL Eosinophils # (0-0.7) k/uL Basophils # (0-0.2) k/uL Sodium (137-145) mmol/L Potassium (3.5-5.1) mmol/L Chloride (98-107) mmol/L Carbon Dioxide (22-30) mmol/L Anion Gap mmol/L BUN (7-17) mg/dL Creatinine (0.52-1.04) mg/dL Est GFR (CKD-EPI)AfAm (>60 ml/min/1.73 sqM) Est GFR (CKD-EPI)NonAf (>60 ml/min/1.73 sqM) Glucose (74-99) mg/dL Calcium (8.4-10.2) mg/dL Magnesium (1.6-2.3) mg/dL Total Bilirubin (0.2-1.3) mg/dL AST (14-36) U/L ALT (4-34) U/L Alkaline Phosphatase (38-126) U/L Total Protein (6.3-8.2) g/dL Albumin (3.5-5.0) g/dL HCG, Quant mIU/mL Urine Color Urine Appearance (Clear) Urine pH (5.0-8.0) Ur Specific [place] (1.001-1.035) Urine Protein (Negative) Urine Glucose (UA) (Negative) Urine Ketones (Negative) Urine Blood (Negative) Urine Nitrite (Negative) Urine Bilirubin (Negative) Urine Urobilinogen (<2.0) mg/dL Ur Leukocyte Esterase (Negative) Urine RBC (0-5) /hpf Urine WBC (0-5) /hpf Ur Squamous Epith Cells (0-4) /hpf Urine Opiates Screen (NotDetected) Ur Oxycodone Screen (NotDetected) Urine Methadone Screen (NotDetected) Ur Propoxyphene Screen (NotDetected) Ur Barbiturates Screen (NotDetected) U Tricyclic Antidepress (NotDetected) Ur Phencyclidine Scrn (NotDetected) Ur Amphetamines Screen (NotDetected) U Methamphetamines Scrn (NotDetected) U Benzodiazepines Scrn (NotDetected) Urine Cocaine Screen (NotDetected) U Marijuana (THC) Screen (NotDetected) Coronavirus (PCR) Not Detected (Not Detectd) Blood Type O Negative Blood Type Recheck O Neg Bld Type Recheck Status No Antibody Screen NEGATIVE Spec Expiration Date 04/08/20222317 Disposition <Felix Basilio - Last Filed: 04/05/22 23:52> Is patient prescribed a controlled substance at d/c from ED?: No <Bill Birch - Last Filed: 04/07/22 19:54> Clinical Impression: Hypokalemia, Recurrent seizures, Pelvic cramping, Abdominal pain Disposition: HOME SELF-CARE Condition: Good Instructions (If sedation given, give patient instructions): Abdominal Pain (ED), Abdominal Pain in (ED) Referrals: None,Stated [Primary Care Provider] - 1-2 days
[2022-04-05 22:08] VITALS: RESP 18; TEMP 98.3
[2022-04-05 22:43] LABS: ALT 9 U/L (4-34); AST 19 U/L (14-36); African American GFR (CKD) >90 (>60 ml/min/1.73 sqM); Alkaline Phosphatase 75 U/L (38-126); Anion Gap 8 mmol/L; Blood Urea Nitrogen 3 mg/dL (7-17); Calcium 8.8 mg/dL (8.4-10.2); Carbon Dioxide 22 mmol/L (22-30); Chloride 106 mmol/L (98-107); Glucose 81 mg/dL (74-99); Magnesium 1.7 mg/dL (1.6-2.3); Non-African American GFR(CKD) >90 (>60 ml/min/1.73 sqM); Potassium 3.2 mmol/L (3.5-5.1); Sodium 136 mmol/L (137-145); Total Bilirubin 0.9 mg/dL (0.2-1.3); Total Protein 6.8 g/dL (6.3-8.2)
[2022-04-05 22:45] LABS: Basophils % (A) 0 %; Eosinophils # (A) 0.2 k/uL (0-0.7); Eosinophils % (A) 6 %; HCT 36.4 % (34.0-46.0); HGB 12.4 gm/dL (11.4-16.0); Lymphocytes # (A) 1.9 k/uL (1.0-4.8); Lymphocytes % (A) 51 %; MCH 30.2 pg (25.0-35.0); MCV 88.7 fL (80.0-100.0); Mean Platelet Volume 8.2; Monocytes # (A) 0.3 k/uL (0-1.0); Monocytes % (A) 9 %; Neutrophils # (A) 1.2 k/uL (1.3-7.7); Neutrophils % (A) 31 %; Platelet Count 194 k/uL (150-450); RDW 12.9 % (11.5-15.5); WBC 3.8 k/uL (3.8-10.6)
[2022-04-05 23:33] LABS: Appearance,Urine Cloudy (Clear); Bilirubin,Urine Negative (Negative); Blood,Urine Negative (Negative); Color,Urine Yellow; Glucose,Urine (UA) Negative (Negative); Ketones,Urine 1+ (Negative); Leukocyte Esterase,Urine Moderate (Negative); Nitrite,Urine Negative (Negative); Protein,Urine Negative (Negative); RBC,Urine 2 /hpf (0-5); Specific Gravity,Urine 1.008 (1.001-1.035); Squamous Epithelial Cell,Urine 16 /hpf (0-4); WBC,Urine 5 /hpf (0-5)
[2022-04-05 23:42] LABS: Amphetamine Screen,Urine Not Detected (NotDetected); Barbiturate Screen,Urine Not Detected (NotDetected); Benzodiazepines Screen,Urine Not Detected (NotDetected); Cocaine Screen,Urine Not Detected (NotDetected); Methadone Screen, Urine Not Detected (NotDetected); Opiate Screen,Urine Not Detected (NotDetected); Oxycodone Screen, Urine Not Detected (NotDetected); Phencyclidine Screen,Urine Not Detected (NotDetected); Tricyclic Antidepressant,Urine Not Detected (NotDetected); Urn Cannabinoid Scrn Detected (NotDetected)
[2022-04-05] MEDS ORDERED: POTASSIUM CHLORIDE ER 20 MEQ TAB.ER PO STA (23:53)
--- NOTE | 2022-04-06 00:07 | US ---
EXAMINATION TYPE: Transabdominal DATE OF EXAM: 04/05/2022 11:44 PM COMPARISON: NONE CLINICAL HISTORY: Pelvic pain. Cramping EXAM PERFORMED: EXAM MEASUREMENTS: GESTATIONAL AGE / DATING Physician Established: Not yet established Dates by LMP: (1 weeks/6 days) EDC: 03/23/2022 Dates by First Scan: No previous this is first scan Dates by Current Scan for: ( 6 weeks/1 days) EDC: 11/28/2022 MATERNAL ANATOMY Uterus: 9.1 x 6.3 x 5.9cm Right Ovary: 2.4 x 1.7 x 1.7cm Left Ovary: 2.8 x 1.7 x 2.1cm Post CDS / Adnexa: wnl Presence of free fluid: no Presence of corpus luteal cyst: not seen Presence of subchorionic bleed: no GESTATION / SURVEY CRL: 0.4cm (6 weeks/1 days) Yolk Sac (normal less than 6mm): not seen Heart Rate: 99 bpm Rhythm: Normal IUP: Viable IUP Date of LMP: 03/23/2022 Beta HcG (if available): Not available at time of exam IMPRESSION: Early intrauterine with gestational age 6 weeks and 1 day according to the crown-rump lengt h. No complicating process seen. No adnexal mass.
[2022-04-06] MEDS ORDERED: ONDANSETRON 4 MG ODT STARTER PACK 2 TAB BTL PO STA (00:40)
[2022-04-06 00:46] VITALS: BP 117/78; PULSE 76
== END 2022-04-06 00:47 | disposition home or self-care (01) ==
LOC: EC 21:44
DX: O26.891 Other specified pregnancy related conditions, first trimester (principal); E87.6 Hypokalemia; G40.909 Epilepsy, unspecified, not intractable, without status epilepticus; J45.909 Unspecified asthma, uncomplicated; K21.9 Gastro-esophageal reflux disease without esophagitis; F31.9 Bipolar disorder, unspecified; F17.200 Nicotine dependence, unspecified, uncomplicated; F12.90 Cannabis use, unspecified, uncomplicated; Z91.030 Bee allergy status; Z91.048 Other nonmedicinal substance allergy status; Z91.010 Allergy to peanuts; Z79.899 Other long term (current) drug therapy; Z20.822 Contact with and (suspected) exposure to COVID-19
CPT/HCPCS: 36415; 86900; 86901; 80053; 80201; 83735; 85025; 86850; 81001; 84702; 80306; 87635; 76801; 99285; 96374; 96375; 96361; J1200; J3415; S0119

== ENCOUNTER 2022-04-15 01:49 | Emergency (ER) | payer OTHER ==
[2022-04-15] MEDS ORDERED: SODIUM CHLORIDE 0.9% 1,000 ML IV STA (01:59)
[2022-04-15] MEDS ORDERED: ONDANSETRON 4 MG/2 ML VIAL IVP STA (02:05)
--- NOTE | 2022-04-15 02:13 | ED ---
General Adult HPI - General Stated complaint: Seizure Time Seen by Provider: 04/15/22 01:57 - History of Present Illness Initial comments: Dictation was produced using [employer] dictation software. please excuse any grammatical, word or spelling errors. Chief Complaint: 21-year-old female presents emergency department for nausea and seizure. she is 7 weeks History of Present Illness: A 21-year-old female she presents to the emergency department for seizure and nausea. Patient states she's been very nauseated secondary to taking seizure medications. She was instructed by the clinic that she needs to complete 7 days of seizure medication in order to qualify for the procedure. She has been taking his medications for 3 days. She is prescribed cenobamate by her primary care doctor back in December. She has kept the medications however has not taken them. She just started taking them after she was instructed by clinic. Patient does have manager store, Dr. Schmitz. Patient states she's planning on getting an for this child because she does not want to follow through the pregnan cy due to personal reasons. She states she does not know the baby's father is. Patient was brought into the emergency department via triage. She is allegedly seizing upon arrival. She was postictal for several seconds then immediately returned back to baseline. The ROS documented in this emergency department record has been reviewed and confirmed by me. Those systems with pertinent positive or negative responses have been documented in the HPI. All other systems are other negative and/or noncontributory. PHYSICAL EXAM: General Impression: Alert and oriented x3, not in acute distress HEENT: Normocephalic atraumatic, extra-ocular movements intact, pupils equal and reactive to light bilaterally, mucous membranes moist. Cardiovascular: Heart regular rate and rhythm Chest: Able to complete full sentences, no retractions, no tachypnea Abdomen: abdomen soft, non-tender, non-distended, no organomegaly Musculoskeletal: Pulses present and equal in all extremities, no peripheral edema Motor: no focal deficits noted Neurological: CN II-XII grossly intact, no focal motor or sensory deficits noted Skin: Intact with no visualized rashes Psych: Normal affect and mood ED course: 21-year-old female who is 7 weeks presents emergency department for seizure and nausea. Patient states that she is so nauseated from the aunt epilepsy medications. Chart review was performed. Patient had been evaluated by neurology with high suspicion of epilepsy. Patient is taking antiseizure medications not dictated by any individual ears these medications were prescribed to her back in December when she was not . Patient plans on getting an with this . She is currently a patient at the clinic. She is told that she needs complete 7 days of antiseizure medications before the procedure.. Patient was admitted to the hospital December 2019. 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 During that time she had a seizure during the delivery. Laboratory evaluation obtained. CBC unremarkable. Metabolic panel shows mild Acidosis with a bicarb of 16 and a gap of 16. This likely suggests that patient had generalized seizure Patient observed in emergency department for 4 hours. Patient currently stable condition. She is well-appearing. Patient is agreeable with discharge. She is given starter pack for antiemetics. Advised follow-up with primary care doctor, neurologist manager store - Related Data Home Medications Medication Instructions Recorded Confirmed Calcium Carbonate [Calcium] 600 mg PO DAILY 08/18/20 08/18/20 Fluticasone Propionate [Flovent 1 puff INHALATION RT-BID 08/18/20 08/18/20 Hfa 110 mcg] Loratadine [Claritin] 10 mg PO DAILY 08/18/20 08/18/20 Medroxyprogesterone Acetate 150 mg IM Q90D 08/18/20 08/18/20 [Depo-Provera] QUEtiapine [SEROquel] 100 mg PO HS 08/18/20 08/18/20 Sertraline HCl [Zoloft] 50 mg PO DAILY 08/18/20 08/18/20 Topiramate [Topamax] 100 mg PO DAILY 08/18/20 08/18/20 Previous Rx's Medication Instructions Recorded Azithromycin [Zithromax Z-pack (6 0 mg PO DIRECTED #1 packet 05/26/21 tabs)] Allergies Allergy/AdvReac Type Severity Reaction Status Date / Time bee pollen Allergy Anaphylaxis Verified 05/26/21 05:15 grass pollen Allergy Dyspnea Verified 05/26/21 05:15 peanut Allergy Swelling Verified 05/26/21 05:15 DUST Allergy Dyspnea Uncoded 05/26/21 05:15 Review of Systems ROS Statement: Those systems with pertinent positive or pertinent negative responses have been documented in the HPI. ROS Other: All systems not noted in ROS Statement are negative. Past Medical History Past Medical History: Asthma, GERD/Reflux, Seizure Disorder Additional Past Medical History / Comment(s): stress seizures, History of Any Multi-Drug Resistant Organisms: None Reported Past Surgical History: Tonsillectomy Additional Past Surgical History / Comment(s): nose surgery, Past Anesthesia/Blood Transfusion Reactions: No Reported Reaction Past Psychological History: ADD/ADHD, Bipolar, Depression Smoking Status: Current every day smoker Past Alcohol Use History: Occasional Past Drug Use History: Marijuana - Past Family History Brother(s) Family Medical History: Asthma Additional Family Medical History / Comment(s): seasonal allergies Mother Family Medical History: Cancer Additional Family Medical History / Comment(s): bone and breast cancer, per pt. asthma. hernia Medical Decision Making - Lab Data Result diagrams: 04/15/22 02:05 04/15/22 02:05 Lab Results 04/15/22 04/15/22 Range/Units 02:05 02:05 WBC 7.1 (3.8-10.6) k/uL RBC 4.50 (3.80-5.40) m/uL Hgb 13.2 (11.4-16.0) gm/dL Hct 40.2 (34.0-46.0) % MCV 89.2 (80.0-100.0) fL MCH 29.3 (25.0-35.0) pg MCHC 32.9 (31.0-37.0) g/dL RDW 12.4 (11.5-15.5) % Plt Count 241 (150-450) k/uL MPV 8.5 Neutrophils % 58 % Lymphocytes % 32 % Monocytes % 5 % Eosinophils % 2 % Basophils % 1 % Neutrophils # 4.1 (1.3-7.7) k/uL Lymphocytes # 2.3 (1.0-4.8) k/uL Monocytes # 0.4 (0-1.0) k/uL Eosinophils # 0.1 (0-0.7) k/uL Basophils # 0.0 (0-0.2) k/uL Sodium 135 L (137-145) mmol/L Potassium 3.5 (3.5-5.1) mmol/L Chloride 103 (98-107) mmol/L Carbon Dioxide 16 L (22-30) mmol/L Anion Gap 16 mmol/L BUN 5 L (7-17) mg/dL Creatinine 0.53 (0.52-1.04) mg/dL Est GFR (CKD-EPI)AfAm >90 (>60 ml/min/1.73 sqM) Est GFR (CKD-EPI)NonAf >90 (>60 ml/min/1.73 sqM) Glucose 84 (74-99) mg/dL Calcium 9.4 (8.4-10.2) mg/dL Magnesium 1.7 (1.6-2.3) mg/dL Disposition Clinical Impression: Recurrent seizures Disposition: HOME SELF-CARE Condition: Good Instructions (If sedation given, give patient instructions): Recurrent Seizures in Adults (ED) Is patient prescribed a controlled substance at d/c from ED?: No Referrals: None,Stated [Primary Care Provider] - 1-2 days Time of Disposition: 06:03
[2022-04-15 02:38] LABS: Basophils % (A) 1 %; Eosinophils # (A) 0.1 k/uL (0-0.7); Eosinophils % (A) 2 %; HCT 40.2 % (34.0-46.0); HGB 13.2 gm/dL (11.4-16.0); Lymphocytes # (A) 2.3 k/uL (1.0-4.8); Lymphocytes % (A) 32 %; MCH 29.3 pg (25.0-35.0); MCHC 32.9 g/dL (31.0-37.0); MCV 89.2 fL (80.0-100.0); Mean Platelet Volume 8.5; Monocytes # (A) 0.4 k/uL (0-1.0); Monocytes % (A) 5 %; Neutrophils # (A) 4.1 k/uL (1.3-7.7); Neutrophils % (A) 58 %; Platelet Count 241 k/uL (150-450); RDW 12.4 % (11.5-15.5); WBC 7.1 k/uL (3.8-10.6)
[2022-04-15 02:59] LABS: African American GFR (CKD) >90 (>60 ml/min/1.73 sqM); Anion Gap 16 mmol/L; Blood Urea Nitrogen 5 mg/dL (7-17); Calcium 9.4 mg/dL (8.4-10.2); Carbon Dioxide 16 mmol/L (22-30); Chloride 103 mmol/L (98-107); Glucose 84 mg/dL (74-99); Magnesium 1.7 mg/dL (1.6-2.3); Non-African American GFR(CKD) >90 (>60 ml/min/1.73 sqM); Potassium 3.5 mmol/L (3.5-5.1); Sodium 135 mmol/L (137-145)
[2022-04-15] MEDS ORDERED: ONDANSETRON 4 MG ODT STARTER PACK 2 TAB BTL PO STA (03:32)
[2022-04-15 07:15] VITALS: BP 107/63; PULSE 81; RESP 16
== END 2022-04-15 07:16 | disposition home or self-care (01) ==
LOC: EC 01:49
DX: O99.351 Diseases of the nervous system complicating pregnancy, first trimester (principal); O99.331 Smoking (tobacco) complicating pregnancy, first trimester; F17.200 Nicotine dependence, unspecified, uncomplicated; J45.909 Unspecified asthma, uncomplicated; Z3A.01 Less than 8 weeks gestation of pregnancy; Z91.030 Bee allergy status; Z91.048 Other nonmedicinal substance allergy status; Z91.010 Allergy to peanuts
CPT/HCPCS: 36415; 93005; 80048; 83735; 85025; 99284; 96374; J2405; S0119

== ENCOUNTER 2022-07-27 13:57 | Inpatient (IN) | payer OTHER ==
[2022-07-27] MEDS ORDERED: SODIUM CHLORIDE 0.9% 500 ML 500 ML IV STA (14:34)
--- NOTE | 2022-07-27 15:42 | ED ---
Seizure HPI - General Chief Complaint: Seizure Stated Complaint: seizure Time Seen by Provider: 07/27/22 14:00 Source: patient, EMS, RN notes reviewed Mode of arrival: EMS Limitations: no limitations - History of Present Illness Initial Comments: 21-year-old female presents emergency Department chief complaint of seizure. Patient has a history of seizures states that she is not on any current medications for this. Patient reportedly tonic clonic seizures today possible multiple. Patient states this is not out of usual for the patient. She states she smokes marijuana. Patient denies any complaints currently. Patient was postictal but is improving. Denies chest pain palpitations headache dizziness blurred vision or focal weakness. - Related Data Home Medications Medication Instructions Recorded Confirmed [id number] 1 tab PO Q4HR PRN 04/25/22 04/25/22 [Excedrin] Previous Rx's Medication Instructions Recorded Ondansetron Odt [Zofran ODT] 4 mg PO Q8HR PRN #10 tab 04/25/22 Allergies Allergy/AdvReac Type Severity Reaction Status Date / Time bee pollen Allergy Anaphylaxis Verified 07/27/22 14:09 grass pollen Allergy Dyspnea Verified 07/27/22 14:09 peanut Allergy Swelling Verified 07/27/22 14:09 DUST Allergy Dyspnea Uncoded 07/27/22 14:09 Review of Systems ROS Statement: Those systems with pertinent positive or pertinent negative responses have been documented in the HPI. ROS Other: All systems not noted in ROS Statement are negative. Past Medical History Past Medical History: Asthma, GERD/Reflux, Seizure Disorder Additional Past Medical History / Comment(s): stress seizures History of Any Multi-Drug Resistant Organisms: None Reported Past Surgical History: Tonsillectomy Additional Past Surgical History / Comment(s): nose surgery, Past Anesthesia/Blood Transfusion Reactions: No Reported Reaction Past Psychological History: ADD/ADHD, Bipolar, Depression Smoking Status: Current every day smoker Past Alcohol Use History: Occasional Past Drug Use History: Marijuana - Past Family History Brother(s) Family Medical History: Asthma Additional Family Medical History / Comment(s): seasonal allergies Mother Family Medical History: Cancer Additional Family Medical History / Comment(s): bone and breast cancer, per pt. asthma. hernia General Exam Limitations: no limitations General appearance: alert, in no apparent distress Head exam: Present: atraumatic, normocephalic, normal inspection Eye exam: Present: normal appearance, PERRL, EOMI. Absent: scleral icterus, conjunctival injection, periorbital swelling ENT exam: Present: normal exam, normal oropharynx, mucous membranes moist Neck exam: Present: normal inspection, full ROM. Absent: tenderness, meningismus, lymphadenopathy Respiratory exam: Present: normal lung sounds bilaterally. Absent: respiratory distress, wheezes, rales, rhonchi, stridor Cardiovascular Exam: Present: regular rate, normal rhythm, normal heart sounds. Absent: systolic murmur, diastolic murmur, rubs, gallop, clicks GI/Abdominal exam: Present: soft, normal bowel sounds. Absent: distended, tenderness, guarding, rebound, rigid Neurological exam: Present: alert, oriented X3, CN II-XII intact, reflexes normal. Absent: motor sensory deficit Skin exam: Present: warm, dry, intact, normal color. Absent: rash Course Vital Signs 07/27/22 07/27/22 14:03 15:34 Temperature 97.6 F Pulse Rate 67 86 Respiratory 18 16 Rate Blood Pressure 114/58 122/77 O2 Sat by Pulse 98 98 Oximetry - Reevaluation(s) Reevaluation #1: 07/27/22 15:42 Patient refuses EKG. Medical Decision Making - Medical Decision Making 21-year-old female presented for multiple seizures. Patient does have a history of seizures though patient did not on Current medications. Patient be admitted for neurology evaluation. - Lab Data Result diagrams: 07/27/22 15:34 07/27/22 15:34 Lab Results 07/27/22 07/27/22 Range/Units 15:34 15:34 WBC 5.0 (3.8-10.6) k/uL RBC 4.14 (3.80-5.40) m/uL Hgb 12.2 (11.4-16.0) gm/dL Hct 35.9 (34.0-46.0) % MCV 86.7 (80.0-100.0) fL MCH 29.4 (25.0-35.0) pg MCHC 34.0 (31.0-37.0) g/dL RDW 13.2 (11.5-15.5) % Plt Count 208 (150-450) k/uL MPV 8.6 Neutrophils % 73 % Lymphocytes % 20 % Monocytes % 4 % Eosinophils % 1 % Basophils % 1 % Neutrophils # 3.7 (1.3-7.7) k/uL Lymphocytes # 1.0 (1.0-4.8) k/uL Monocytes # 0.2 (0-1.0) k/uL Eosinophils # 0.1 (0-0.7) k/uL Basophils # 0.0 (0-0.2) k/uL Sodium 140 (137-145) mmol/L Potassium 3.8 (3.5-5.1) mmol/L Chloride 110 H (98-107) mmol/L Carbon Dioxide 24 (22-30) mmol/L Anion Gap 6 mmol/L BUN 6 L (7-17) mg/dL Creatinine 0.66 (0.52-1.04) mg/dL Est GFR (CKD-EPI)AfAm >90 (>60 ml/min/1.73 sqM) Est GFR (CKD-EPI)NonAf >90 (>60 ml/min/1.73 sqM) Glucose 85 (74-99) mg/dL Calcium 8.6 (8.4-10.2) mg/dL Magnesium 1.8 (1.6-2.3) mg/dL Total Bilirubin 0.7 (0.2-1.3) mg/dL AST 18 (14-36) U/L ALT 12 (4-34) U/L Alkaline Phosphatase 71 (38-126) U/L Total Protein 6.8 (6.3-8.2) g/dL Albumin 4.3 (3.5-5.0) g/dL Serum Alcohol <10 mg/dL Disposition Clinical Impression: Generalized seizure Disposition: ADMITTED IP TO THIS [facility] Instructions (If sedation given, give patient instructions): Seizure/Epilepsy Discharge Instructions & Follow-Up Referrals: Feroz Alanis MD [Primary Care Provider] - 1-2 days Time of Disposition: 16:03
[2022-07-27 16:01] LABS: Basophils % (A) 1 %; Eosinophils # (A) 0.1 k/uL (0-0.7); Eosinophils % (A) 1 %; HCT 35.9 % (34.0-46.0); HGB 12.2 gm/dL (11.4-16.0); Lymphocytes % (A) 20 %; MCH 29.4 pg (25.0-35.0); MCV 86.7 fL (80.0-100.0); Mean Platelet Volume 8.6; Monocytes # (A) 0.2 k/uL (0-1.0); Monocytes % (A) 4 %; Neutrophils # (A) 3.7 k/uL (1.3-7.7); Neutrophils % (A) 73 %; Platelet Count 208 k/uL (150-450); RBC 4.14 m/uL (3.80-5.40); RDW 13.2 % (11.5-15.5)
[2022-07-27 16:13] LABS: ALT 12 U/L (4-34); AST 18 U/L (14-36); African American GFR (CKD) >90 (>60 ml/min/1.73 sqM); Albumin 4.3 g/dL (3.5-5.0); Alcohol <10 mg/dL; Alkaline Phosphatase 71 U/L (38-126); Anion Gap 6 mmol/L; Blood Urea Nitrogen 6 mg/dL (7-17); Calcium 8.6 mg/dL (8.4-10.2); Carbon Dioxide 24 mmol/L (22-30); Chloride 110 mmol/L (98-107); Glucose 85 mg/dL (74-99); Magnesium 1.8 mg/dL (1.6-2.3); Non-African American GFR(CKD) >90 (>60 ml/min/1.73 sqM); Potassium 3.8 mmol/L (3.5-5.1); Sodium 140 mmol/L (137-145); Total Bilirubin 0.7 mg/dL (0.2-1.3); Total Protein 6.8 g/dL (6.3-8.2)
[2022-07-27] MEDS ORDERED: NALOXONE 0.4 MG/ML 1 ML VIAL IV PRN (16:33)
[2022-07-27] MEDS ORDERED: levETIRAcetam IV 1,000 MG in SALINE 1 100ML.BAG IVPB STA (16:33)
[2022-07-27] MEDS ORDERED: LORazepam 2 MG/ML INJ IV PRN (16:35)
[2022-07-27 16:49] LABS: HCG,Qualitative Serum Not Detected
--- NOTE | 2022-07-27 17:10 | CT ---
EXAMINATION TYPE: CT brain wo con DATE OF EXAM: 07/27/2022 COMPARISON: 08/18/2020 HISTORY: Seizure. CT DLP: 1143.4 mGycm Automated exposure control for dose reduction was used. Ventricles of normal size. There is no mass effect nor midline shift. No sign of intracranial hemorrh age. No evidence of intracranial hemorrhage. No evidence of cerebral edema. Calvarium appears normal. There is normal aeration of the mastoid sinuses. IMPRESSION: Normal unenhanced head CT scan. No change.
[2022-07-27] MEDS: SODIUM CHLORIDE 0.9% 1,000 ML IV SCH (17:32)
[2022-07-27] MEDS: LORazepam 1 MG/0.5 ML VIAL IV PRN (18:03)
[2022-07-28] MEDS: LORazepam 1 MG/0.5 ML VIAL IV PRN (00:40)
[2022-07-28] MEDS ORDERED: LORazepam 1 MG/0.5 ML VIAL IV STA (02:02)
[2022-07-28] MEDS ORDERED: levETIRAcetam IV 1,500 MG in SALINE 1 100ML.BAG IVPB STA (02:03)
[2022-07-28] MEDS ORDERED: LACOSAMIDE 50 MG TABLET PO STA (02:03)
[2022-07-28] MEDS: ACETAMINOPHEN TAB 325 MG TAB PO PRN ×2 (02:22→22:05)
[2022-07-28] MEDS: SODIUM CHLORIDE 0.9% 1,000 ML IV SCH ×2 (04:49→21:34)
[2022-07-28] MEDS ORDERED: levETIRAcetam IV 750 MG in SODIUM CHLORIDE 0.9% 100 ML IVPB SCH (06:00)
[2022-07-28 10:07] LABS: Urn Cannabinoid Scrn Detected (NotDetected)
[2022-07-28 10:08] LABS: Amphetamine Screen,Urine Not Detected (NotDetected); Barbiturate Screen,Urine Not Detected (NotDetected); Benzodiazepines Screen,Urine Detected (NotDetected); Cocaine Screen,Urine Not Detected (NotDetected); Methadone Screen, Urine Not Detected (NotDetected); Opiate Screen,Urine Not Detected (NotDetected); Oxycodone Screen, Urine Not Detected (NotDetected); Phencyclidine Screen,Urine Not Detected (NotDetected); Tricyclic Antidepressant,Urine Not Detected (NotDetected)
--- NOTE | 2022-07-28 10:44 | P.CNNES ---
History of Present Illness Consult date: 07/28/22 Requesting physician: Seferino Jacobs Reason for Consult: seizure History of Present Illness: This is a 21-year-old woman with history of seizures, bipolar who presented emergency department because of reported multiple seizures. Patient stated that she is not on any antiepileptic drugs. Patient is not a great historian but she stated that she had multiple seizure that's why she presented to the hospital. She stated that she was diagnosed seizure in 2018 but does not recall the name of the neurologist that diagnosed with seizure. That she stated that in 2019 she had a long-term EEG in [facility] and was told she has nonepileptic spells but initially stated that she did not need to be on antiepileptic then later stated he needs to be on antiepileptic drug. She stated that she was on levetiracetam in the past and was told to stop because of her psych history. Patient could not describe her spells for me. Per the patient nurse she has not been on antiepileptic since either November or December 2021. As a result in the ED she was given a loading dose of Keppra 1000 mg once and was getting Ativan 1 mg every 4 hours as needed Patient stated that the she continues to smoke and uses marijuana. She had h istory of illicit drug use but has been clean for at least 6 months. She does drink alcohol and states strength alcohol over the weekends. Overnight, the nurse notified me that she had a cluster of seizures and that they would last less than a minute with eyes rolling back and the nurse had a hard time describing these episodes for me if that she lost consciousness or not so I notified her to give the Ativan 2 mg with a loading dose of Keppra 1500 as well as Vimpat 200 mg once and start her on the Vimpat 50 mg every 12 hours and increased the Keppra from 750 2000 mg every 12 hours. Today was notified by the nursing staff that the patient would have the eye rolling back episodes would last less than a minute and she would have shaken and would have multiple episodes but with the spontaneously recover immediately after the episodes. Some of the workup during our hospital visit: Initial vital signs is within normal limits CBC with differential is unremarkable Chemistry panel is initial glucose calcium AST ALT as well as sodium is within normal limits. HCG is not detected. CT of the head is reported as normal on has had computed tomography scan. No change. Of note patient had an EEG in our facility in the December 2019 and it's reported as normal She also had MRI of the brain during that time and it's reported as normal Review of Systems Review of system: The 12 point system was reviewed and apparent positive and negative per HPI. Past Medical History Past Medical History: Asthma, GERD/Reflux, Seizure Disorder Additional Past Medical History / Comment(s): stress seizures History of Any Multi-Drug Resistant Organisms: None Reported Past Surgical History: Tonsillectomy Additional Past Surgical History / Comment(s): nose surgery, Past Anesthesia/Blood Transfusion Reactions: No Reported Reaction Past Psychological History: ADD/ADHD, Bipolar, Depression Smoking Status: Current every day smoker Past Alcohol Use History: Occasional Past Drug Use History: Marijuana - Past Family History Brother(s) Family Medical History: Asthma Additional Family Medical History / Comment(s): seasonal allergies Mother Family Medical History: Cancer Additional Family Medical History / Comment(s): bone and breast cancer, per pt. asthma. hernia Medications and Allergies Home Medications Medication Instructions Recorded Confirmed Type Antideprssant(Unknown) 1 tab PO DAILY 07/27/22 07/27/22 History EPINEPHrine (Auto Inject) [Epipen] 0.3 mg IM ONCE PRN 07/27/22 07/27/22 History Loratadine [Claritin] 10 mg PO DAILY 07/27/22 07/27/22 History Niva-Plus 1 tab PO DAILY 07/27/22 07/27/22 History Vitamin D3 50,000iu 50,000 units PO Q30D 07/27/22 07/27/22 History Allergies Allergy/AdvReac Type Severity Reaction Status Date / Time bee pollen Allergy Anaphylaxis Verified 07/27/22 17:14 bee venom protein (honey bee) Allergy Anaphylaxis Verified 07/27/22 17:14 grass pollen Allergy Dyspnea Verified 07/27/22 17:14 peanut Allergy Swelling Verified 07/27/22 17:14 DUST Allergy Dyspnea Uncoded 07/27/22 17:14 Physical Examination - Vital Signs Vital Signs: Vital Signs Temp Pulse Pulse Resp BP BP Pulse Ox 07/28/22 04:30 98.3 F 60 16 106/60 97 07/28/22 00:57 98.6 F 57 L 16 100/59 96 07/27/22 21:17 97.5 F L 62 16 99/59 100 07/27/22 19:50 16 07/27/22 18:39 98.6 F 62 18 95/51 97 07/27/22 17:23 88 15 122/87 99 07/27/22 15:34 86 16 122/77 98 07/27/22 14:03 97.6 F 67 18 114/58 98 Intake and Output 07/27/22 07/28/22 07/28/22 22:59 06:59 14:59 Intake Total 360 1360 Output Total 500 Balance 360 1360 -500 Intake: Intake, IV Titration 1000 Amount Sodium Chloride 0.9% 1, 900 000 ml @ 75 mls/hr IV . [id number] [facility] Rx#:[id number] levETIRAcetam IV 1,500 mg 100 In Saline 1 100ml.bag @ 400 mls/hr IVPB ONCE STA Rx#:[id number] Oral 360 360 Output: Urine 500 Other: Voiding Method Toilet Weight 77.111 kg GENERAL: The patient is lying in bed and is not in acute distress. CHEST: The heart rate is regular rate rhythm. No murmurs to auscultation. LUNG: Clear to auscultation bilaterally no wheezing noted throughout. Not lab ored breathing. ABDOMEN/GI: Bowel sounds present in all 4 quadrants. No tenderness to palpation throughout. NEUROLOGICAL: Higher mental function: The patient is awake, alert, oriented to self, place and time. Patient is following commands. No aphasia and no neglect. Cranial nerves: The pupils are round, equal and reactive to light and accommodation. Visual gracia are full to confrontation throughout. Extraocular movement is intact no nystagmus is noted. Facial sensation is normal to touch throughout. The facial strength is normal throughout. Hearing is normal bilaterally to hand rub. Tongue is midline and moved [id number] without any difficulty. No dysarthria is noted. Shoulder shrug is normal bilaterally. Motor: The strength is 5 over 5 throughout. Normal tone and bulk. Cerebellum: Normal finger to nose bilaterally. Sensation: Sensation is normal to touch throughout. Reflexes (right/left):2+ throughout. Plantars are downgoing bilaterally. Then just immediately after the physical exam patient started having coughing episode and then had an episode of eye rolling back and irregular rhythmic movement of the right upper extremity that is subsided then she had irregular rhythmic movement of the left upper extremity but no foaming around the mouth. The episode lasted the less than a minute and I would say maybe 20 seconds and then she had another episode after that similar lasting less than a minute then immediately start responding without any post ictal state. Results - Laboratory Findings CBC and BMP: 07/27/22 15:34 07/27/22 15:34 Abnormal Lab Findings: Abnormal Labs 07/27/22 07/28/22 15:34 09:40 Chloride 110 H BUN 6 L U Benzodiazepines Scrn Detected H U Marijuana (THC) Screen Detected H Assessment and Plan Assessment: Her seizure-like episodes are nonepileptic in nature (I witnessed two episodes today on 07/28/2022 and patient had irregular rhythmic movement of extremities with eye rolling back then immediately responds after event). Also the patient is a having that many seizures her labs will be reactive on having elevated glucose white blood cell abnormal vitals in her labs have been normal History of seizures History of bipolar History of illicit drug use Tobacco use Marijuana use Plan: I stopped the Keppra since that she was told in the past 2 avoided because of mood/behavioral issue. Continue Vimpat 50 mg every 12 hours. An EEG is ordered by the primary team and I don't feel its needed during this hospital stay and I would recommend a prolonged EEG/epilepsy monitoring unit as an outpatient to rule out any underlying epilepsy. I started the patient on folic acid 1 mg daily as well as timing 100 mg tablet twice a day Recommend neurology and psychiatry follow-up. Recommend the patient to follow-up with a neurologist as an outpatient in 1-2 weeks Patient was counseled on tobacco cessation. Per the [place] DMV because of her seizure episodes she is to avoid driving for 6 month, avoid the [place], avoid heavy machinery or swimming unassisted. The patient states in the hospital then we'll pursue the routine EEG otherwise no additional workup is needed. The plan was discussed with the patient as well as her nurse. Thank you for the consultation Time with Patient: Greater than 30
[2022-07-28] MEDS ORDERED: levETIRAcetam 500 MG TAB PO SCH (14:00)
[2022-07-28] MEDS: LACOSAMIDE 50 MG TABLET PO SCH (15:53)
[2022-07-28 19:53] VITALS: RESP 16
[2022-07-28] MEDS: NICOTINE 21MG/24HR PATCH TRANSDERM SCH (21:29)
[2022-07-29] MEDS: LORazepam 1 MG/0.5 ML VIAL IV PRN ×2 (01:47→07:48)
[2022-07-29] MEDS: LACOSAMIDE 50 MG TABLET PO SCH ×2 (01:53→13:16)
[2022-07-29] MEDS ORDERED: LACOSAMIDE 50 MG TABLET PO STA (04:25)
[2022-07-29 04:45] LABS: Glucose,Whole Blood 106 mg/dL (70-110)
[2022-07-29] MEDS ORDERED: THIAMINE 100 MG TAB PO SCH (09:00)
[2022-07-29] MEDS ORDERED: FOLIC ACID 1 MG TAB PO SCH (09:00)
[2022-07-29 09:14] VITALS: TEMP 97.9
[2022-07-29] MEDS: NICOTINE 21MG/24HR PATCH TRANSDERM SCH (09:36)
--- NOTE | 2022-07-29 11:01 | P.PN ---
Subjective Progress Note Date: 07/29/22 The patient is seen at bedside and I was paged by overnight nurse that she is continuing to have seizure-like activity and was prolonged lasting 5 minutes. Upon asking the patient's nurse about if she is responding to questions or not she was not able to give me great history and initially stated she was not but she asked patient to show her a thumbs up and patient was able. The nursing staff having been giving the patient Ativan because of concerns of seizure. I asked the nurse to give a loading dose of Vimapt 100mg once, obtain sugar level and Lactic acid. Today the nurse stated she had a prolonged episode and had to sternally rub her and as a result gave her Ativan. Also yesterday AM document that patient had multiple seizure-like episode and it appears more non-epileptic from description. Her lactic acid level is 1.8 (normal) which should be elevated if patient is truly having numerous seizures for the past 48 hours. Objective - Vital Signs Vital signs: Vital Signs Temp 97.9 F 07/29/22 07:48 Pulse 78 07/29/22 07:48 Resp 16 07/29/22 07:48 BP 120/73 07/29/22 07:48 Pulse Ox 100 07/29/22 09:21 FiO2 21 07/29/22 09:21 Intake & Output 07/28/22 07/29/22 07/29/22 18:59 06:59 18:59 Intake Total 800 1400 Output Total 500 Balance 300 1400 Intake: Intake, IV Titration 900 Amount Sodium Chloride 0.9% 1, 900 000 ml @ 75 mls/hr IV . [id number] [facility] Rx#:[id number] Oral 800 500 Output: Urine 500 Other: Voiding Method Toilet # Voids 1 4 - Exam GENERAL: The patient is lying in bed and is not in acute distress. NEUROLOGICAL: Higher mental function: The patient is awake, alert, oriented to self, place and time. Patient is following commands. No aphasia and no neglect. Cranial nerves: The pupils are round, equal and reactive to light and accommodation. Visual gracia are full to confrontation throughout. Extraocular movement is intact no nystagmus is noted. Facial sensation is normal to touch throughout. The facial strength is normal throughout. Hearing is normal bilaterally to hand rub. Tongue is midline and moved [id number] without any difficulty. No dysarthria is noted. Shoulder shrug is normal bilaterally. Motor: The strength is 5 over 5 throughout. Normal tone and bulk. Cerebellum: Normal finger to nosebilaterally. Sensation: Sensation is normal to touch throughout. Some of the workup during our hospital visit: Initial vital signs is within normal limits CBC with differential is unremarkable Chemistry panel is initial glucose calcium AST ALT as well as sodium is within normal limits. HCG is not detected. CT of the head is reported as normal on has had computed tomography scan. No change. Her lactic acid level is 1.8 (normal) - Labs CBC & Chem 7: 07/27/22 15:34 07/27/22 15:34 Assessment and Plan Assessment: Her seizure-like episodes are nonepileptic in nature (I witnessed two episodes today on 07/28/2022 and patient had irregular rhythmic movement of extremities with eye rolling back then immediately responds after event). Also the patient is a having seizure-like episodes for the past 48 hours and her labs are normal (her lactic acid normal and rest labs are normal and if patient that is having numerous seizures should have reactive labs). History of reported seizures History of bipolar History of illicit drug use Tobacco use Marijuana use Plan: I stopped the Keppra since that she was told in the past 2 avoided because of mood/behavioral issue. Continue Vimpat 50 mg every 12 hours. An EEG is ordered by the primary team. I would recommend a prolonged EEG/epilepsy monitoring unit as an outpatient to rule out any underlying epilepsy. Continue folic acid 1 mg daily as well as timing 100 mg tablet twice a day I stopped Ativan PRN since I feel she is having non-epileptic spell. I notified the nurse, to notify me if she does have a spell so I can come and observe it. Recommend neurology and psychiatry follow-up as outpatient within 1-2 weeks. Patient was counseled on tobacco cessation. Will defer the rest of medical management to the primary team. Per the [place] DM because of her seizure episodes she is to avoid driving for 6 month, avoid the [place], avoid heavy machinery or swimming unassisted. 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 During episode patient was nonresponsive, had non-stop head shaking, eye fluttering. Also had excessive beta activity due to medication effect (Ativan). From a neurological perspective recommend epilepsy monitoring unit as outpatient to rule true epileptic seizure in addition. Otherwise no additional work-up from neurological perspective. Will sign off. Please reconsult if needed. The plan was discussed with the patient as well as her nurse. Time with Patient: Greater than 30
[2022-07-29 11:56] VITALS: BP 122/74; PULSE 63
[2022-07-29] MEDS: SODIUM CHLORIDE 0.9% 1,000 ML IV SCH (13:06)
[2022-07-29] MEDS: ACETAMINOPHEN TAB 325 MG TAB PO PRN (13:19)
[2022-07-29] MEDS ORDERED: FLUoxetine HCL 20 MG CAP PO SCH (14:15)
[2022-07-29 14:21] VITALS: BMI 23.0
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
[2022-07-29] MEDS ORDERED: OLANZapine 5 MG TAB PO SCH (21:00)
--- NOTE | 2022-07-30 04:08 | EEG ---
ELECTROENCEPHALOGRAM REPORT CLINICAL HISTORY: This is a 21-year-old woman with seizure-like episodes. The video EEG is obtained to evaluate for seizure epileptiform activity. RELEVANT MEDICATIONS: 1. Ativan. 2. Vimpat. EEG TYPE: A routine 21-channel EEG is performed with video using the 10/20 electrode placement system. DESCRIPTION: Unable to get a good background since obscured due to myogenic artifact. Had nonrhythmic 4-5 hertz delta activity, and there is a good amount of myogenic artifact. And clinically the patient had constant head tremor. There is no sleep architecture seen. There is excessive beta activity seen throughout the study on bilateral hemispheres. INTERICTAL AND ICTAL: As stated above, the patient has nonrhythmic 4-5 hertz delta activity that is nonrhythmic intermixed with significant myogenic artifact. Clinically, the patient has nonrhythmic head movement with eye closure was not nonresponsive with eye fluttering. Her episodes are non-epileptic in nature. No seizure or epileptiform discharges appreciated. ACTIVATION PROCEDURE: Photic stimulation and hyperventilation are not performed because of her condition, cooperation. 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 No detectable seizure or epileptiform discharge seen. Unable to comment on the background because of the artifact. The excessive beta activity is due to medication effect (Ativan). Clinical correlation is recommended. MMODL / IJN: [id number] / MTDD
--- NOTE | 2022-07-30 05:38 | HP ---
HISTORY AND PHYSICAL CHIEF COMPLAINT: Status epilepticus. HISTORY OF PRESENT ILLNESS: This is another admission for this 21-year-old -Hungarian female. I do not know her well. She was last in the office on February 01 this year. She does have a history of seizures, bipolar depression, alcohol abuse, anger management problems. She came in to the emergency room with several witnessed seizures in the emergency room. She was admitted. REVIEW OF SYSTEMS: Difficult to obtain because she is quite drowsy. ALLERGIES: Our records indicate that she is not allergic to any medication. MEDICATIONS: When she was seen in January, she was on vitamin D3, Xcopri starter pack. She has not been seen since. SOCIAL HISTORY: She does apparently smoke. PHYSICAL EXAMINATION: VITAL SIGNS: Blood pressure is 126/72 with a pulse of 88, respirations of 34, and she is afebrile. GENERAL: She appeared to be in no acute distress. She was lethargic. It was presumed that she was postictal. HEENT: Head, ears, eyes, nose, mouth, and throat could not be easily examined. NECK: Supple. CHEST: Clear. CARDIAC: Exam demonstrates sinus rhythm with no murmurs or extra sounds. ABDOMEN: Soft and nontender. EXTREMITIES: Normal. NEUROLOGICAL: She seemed to be grossly intact. She had no focal neurologic findings and she was demonstrating no seizure activity. DIAGNOSES: She is admitted to the hospital with diagnoses: 1. Grand mal seizure disorder. 2. History of bipolar depression. 3. History of anger management problems. PLAN: 1. Bedrest. 2. IV fluids. 3. Seizure precaution. 4. Consult with Neurology. 5. Start Marlene. MMALONDRAL / IJN: [id number] /
--- NOTE | 2022-07-30 08:01 | PN ---
PROGRESS NOTE DATE OF SERVICE: 07/29/2022 CHIEF COMPLAINT: Seizures. HISTORY OF PRESENT ILLNESS: This lady is awake and alert. There have been some "witnessed" seizures. Apparently, there is a history of whether not these are true seizures. She is undergoing further neurologic testing today. PHYSICAL EXAMINATION: CHEST: Clear. CARDIAC: Normal. ABDOMEN: Soft, nontender. IMPRESSION: 1. Seizure disorder. 2. ? pseudoseizures? PLAN: Await further neurologic evaluation and probably discharge the next day or so if her studies are negative. MMODL / IJN: [id number] /
--- NOTE | 2022-07-30 08:24 | PN ---
PROGRESS NOTE DATE OF SERVICE: 07/28/2022 CHIEF COMPLAINT: Seizures. HISTORY OF PRESENT ILLNESS: This lady is still somewhat lethargic. Apparently, there have been no seizures witnessed and she has come in. I am not familiar with this patient, but she seems to have a mental debility. PHYSICAL EXAMINATION: CHEST: Clear. CARDIAC: Normal. GENERAL: She seems to be awake and alert. NEUROLOGICAL: She is intact, although she is still little bit groggy. IMPRESSION: 1. Seizure disorder. 2. Postictal depression. PLAN: Continue workup and continue to monitor for any further seizures. MMODL / IJN: [id number] /
--- NOTE | 2022-07-31 07:29 | DS ---
DISCHARGE SUMMARY CHIEF COMPLAINT: Seizures. HISTORY OF PRESENT ILLNESS AND PHYSICAL EXAMINATION: Details of this lady's history and physical can be found in the initial workup. LABORATORY STUDIES: While she was in the hospital, she had laboratory studies, details of which can be found in the laboratory section of her chart. COURSE IN HOSPITAL: After admission, she was placed on bedrest, started on intravenous fluids and placed on seizure precautions. The first day or so, she remained lethargic. She was seen in consultation by Psychiatry and Neurology. It was felt that these are pseudoseizures. It was felt she could be discharged, and she will be followed up in the office in several days. FINAL DIAGNOSES: 1. Seizure activity. 2. Possible seizure disorder. 3. Possible pseudoseizures. 4. Mental incapacitation. OPERATIONS: None. CONSULTATION: Psychiatry and Neurology. She is improved. MMSHAQ / IJJanie: [id number] /
== END 2022-07-29 17:45 | disposition left against medical advice (07) | DRG 101 ==
LOC: EC 13:57 → 5NMEDONC 16:37
PROVIDERS: ADMIT Family Medicine; ATTEND Family Medicine
DX: R56.9 Unspecified convulsions (principal); F31.30 Bipolar disorder, current episode depressed, mild or moderate severity, unspecified; F10.10 Alcohol abuse, uncomplicated; F12.20 Cannabis dependence, uncomplicated; Z28.310 Unvaccinated for COVID-19; F90.9 Attention-deficit hyperactivity disorder, unspecified type; F79 Unspecified intellectual disabilities; J45.909 Unspecified asthma, uncomplicated; K21.9 Gastro-esophageal reflux disease without esophagitis; F17.210 Nicotine dependence, cigarettes, uncomplicated; Z71.6 Tobacco abuse counseling; Z79.899 Other long term (current) drug therapy; Z91.030 Bee allergy status; Z91.010 Allergy to peanuts
CPT/HCPCS: 36415; 70450; 80053; 80306; 80320; 83605; 83735; 84703; 85025; 94760; 95816; 96361; 96374; 99285

== ENCOUNTER 2023-05-11 03:01 | Emergency (ER) | payer OTHER ==
[2023-05-11 03:05] VITALS: TEMP 98.9
[2023-05-11] MEDS ORDERED: levETIRAcetam IV 500 MG/5 ML VIAL IVP STA (03:11)
[2023-05-11] MEDS ORDERED: LORazepam 2 MG/ML INJ IV STA ×2 (03:11→03:41)
[2023-05-11] MEDS ORDERED: SODIUM CHLORIDE 0.9% 1,000 ML IV STA ×2 (03:11)
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
[2023-05-11 03:19] LABS: Basophils % (A) 0 %; Eosinophils # (A) 0.2 k/uL (0-0.7); Eosinophils % (A) 2 %; HCT 40.8 % (34.0-46.0); HGB 13.1 gm/dL (11.4-16.0); Lymphocytes # (A) 2.7 k/uL (1.0-4.8); Lymphocytes % (A) 37 %; MCH 30.3 pg (25.0-35.0); MCHC 32.2 g/dL (31.0-37.0); MCV 94.1 fL (80.0-100.0); Mean Platelet Volume 9.7; Monocytes # (A) 0.4 k/uL (0-1.0); Monocytes % (A) 5 %; Neutrophils # (A) 3.8 k/uL (1.3-7.7); Neutrophils % (A) 52 %; Platelet Count 127 k/uL (150-450); RBC 4.33 m/uL (3.80-5.40); RDW 13.3 % (11.5-15.5); WBC 7.3 k/uL (3.8-10.6)
[2023-05-11 03:31] LABS: ALT 16 U/L (4-34); AST 31 U/L (14-36); Acetaminophen <10.0 ug/mL; African American GFR (CKD) >90 (>60 ml/min/1.73 sqM); Albumin 4.9 g/dL (3.5-5.0); Alkaline Phosphatase 57 U/L (38-126); Anion Gap 21 mmol/L; Blood Urea Nitrogen 6 mg/dL (7-17); Calcium 9.1 mg/dL (8.4-10.2); Carbamazepine (Tegretol) <3.0 ug/mL; Carbon Dioxide 10 mmol/L (22-30); Chloride 107 mmol/L (98-107); Glucose 78 mg/dL (74-99); Lithium <0.2 mmol/L; Magnesium 1.8 mg/dL (1.6-2.3); Non-African American GFR(CKD) 88 (>60 ml/min/1.73 sqM); Phenytoin (Dilantin) <3.0 ug/mL; Salicylate <1.0 mg/dL; Sodium 138 mmol/L (137-145); Total Bilirubin 1.1 mg/dL (0.2-1.3); Total Protein 8.1 g/dL (6.3-8.2)
[2023-05-11 03:33] LABS: Valproic Acid (Depakene) <10.0 ug/mL
[2023-05-11 03:38] LABS: Alcohol 104 mg/dL
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
[2023-05-11 06:15] VITALS: BP 112/98; PULSE 63; RESP 19
== END 2023-05-11 06:13 | disposition home or self-care (01) ==
LOC: EC 03:01
DX: G40.409 Other generalized epilepsy and epileptic syndromes, not intractable, without status epilepticus (principal); F43.9 Reaction to severe stress, unspecified; F10.129 Alcohol abuse with intoxication, unspecified; J45.909 Unspecified asthma, uncomplicated; F17.200 Nicotine dependence, unspecified, uncomplicated; F12.90 Cannabis use, unspecified, uncomplicated; Z91.010 Allergy to peanuts; Z91.030 Bee allergy status; Z91.048 Other nonmedicinal substance allergy status; Y90.5 Blood alcohol level of 100-119 mg/100 ml
CPT/HCPCS: 36415; 93005; 80156; 80164; 80053; 80185; 80178; 83735; 85025; 80143; 80179; 72125; 70486; 70450; 99285; 96374; 96375; 96361 ×3; G0480; J2060; J1953; 80320

== ENCOUNTER 2023-05-20 15:35 | Emergency (ER) | payer OTHER ==
[2023-05-20] MEDS ORDERED: LORazepam 2 MG/ML INJ IV STA (16:10)
[2023-05-20] MEDS ORDERED: SODIUM CHLORIDE 0.9% 1,000 ML IV ONE (16:11)
--- NOTE | 2023-05-20 16:43 | ED ---
General Adult HPI - General Chief complaint: Upper Respiratory Infection Stated complaint: sob Time Seen by Provider: 05/20/23 16:11 Source: patient, RN notes reviewed Mode of arrival: ambulatory Limitations: no limitations - History of Present Illness Initial comments: 22-year-old -[place] female past medical history significant for seizures presents emergency department with a chief complaint of shortness of breath. Patient reports worsening shortness of breath and cough for the last 2 days. She reports a productive cough with yellow sputum. She denies any recent sick contacts. Denies known fevers, headache, dizziness, sore throat, nausea, vomiting, abdominal pain. - Related Data Home Medications Medication Instructions Recorded Confirmed EPINEPHrine (Auto Inject) [Epipen] 0.3 mg IM ONCE PRN 07/27/22 07/27/22 Loratadine [Claritin] 10 mg PO DAILY 07/27/22 07/27/22 Vitamin D3 50,000iu 50,000 units PO Q30D 07/27/22 07/27/22 Previous Rx's Medication Instructions Recorded FLUoxetine HCL [PROzac] 20 mg PO DAILY #10 cap 07/29/22 Folic Acid 1 mg PO DAILY #10 tab 07/29/22 Lacosamide [Vimpat] 50 mg PO Q12H #20 tab 07/29/22 OLANZapine [ZyPREXA] 5 mg PO HS #10 tab 07/29/22 Thiamine [Vitamin B-1] 100 mg PO DAILY #10 tab 07/29/22 Albuterol Inhaler [Ventolin Hfa 2 puff INHALATION QID #8 gm 05/20/23 Inhaler] predniSONE 50 mg PO DAILY #5 tab 05/20/23 Allergies Allergy/AdvReac Type Severity Reaction Status Date / Time bee pollen Allergy Anaphylaxis Verified 05/20/23 15:46 bee venom protein (honey bee) Allergy Anaphylaxis Verified 05/20/23 15:46 grass pollen Allergy Dyspnea Verified 05/20/23 15:46 peanut Allergy Swelling Verified 05/20/23 15:46 DUST Allergy Dyspnea Uncoded 05/20/23 15:46 Review of Systems ROS Statement: Those systems with pertinent positive or pertinent negative responses have been documented in the HPI. ROS Other: All systems not noted in ROS Statement are negative. Past Medical History Past Medical History: Asthma, GERD/Reflux, Seizure Disorder Additional Past Medical History / Comment(s): stress seizures History of Any Multi-Drug Resistant Organisms: None Reported Past Surgical History: Tonsillectomy Additional Past Surgical History / Comment(s): nose surgery, Past Anesthesia/Blood Transfusion Reactions: No Reported Reaction Past Psychological History: ADD/ADHD, Bipolar, Depression Smoking Status: Current every day smoker Past Alcohol Use History: Occasional Past Drug Use History: Marijuana - Past Family History Brother(s) Family Medical History: Asthma Additional Family Medical History / Comment(s): seasonal allergies Mother Family Medical History: Cancer Additional Family Medical History / Comment(s): bone and breast cancer, per pt. asthma. hernia General Exam - General Exam Comments Initial Comments: General: Alert, in no acute distress Head: atraumatic normocephalic. Eyes PERRL, EOMI intact, mucous membranes moist Respiratory: Lungs clear to auscultation bilaterally Cardiovascular: Heart rate regular rate and rhythm Abdominal: Soft without guarding or rebound Extremities: Normal inspection with full range of motion and normal capillary refill Neuroogic: alert and oriented 3, CN II-XII intact, able to ambulate with steady gait Skin: warm dry and intact with normal color Limitations: no limitations Course Vital Signs 05/20/23 05/20/23 05/20/23 15:46 17:00 18:11 Temperature 98 F 98.0 F Pulse Rate 98 66 Respiratory 16 18 18 Rate Blood Pressure 127/80 127/68 O2 Sat by Pulse 99 99 Oximetry Medical Decision Making - Medical Decision Making Was pt. sent in by a medical professional or institution (WARREN Rooney, ELECTRONEURODIAGNOSTIC TECHNOLOGIST, urgent care, hospital, or alf...) When possible be specific @ -[No] Did you speak to anyone other than the patient for history (EMS, parent, family, police, friend...)? What history was obtained from this source @ -[No] Did you review nursing and triage notes (agree or disagree)? Why? @ -[I reviewed and agree with nursing and triage notes] Were old charts reviewed (outside hosp., previous admission, EMS record, old EKG, old radiological studies, urgent care reports/EKG's, alf records)? Report findings @ -[No old charts were reviewed] Differential Diagnosis (chest pain, altered mental status, abdominal pain women, abdominal pain men, vaginal bleeding, weakness, fever, dyspnea, syncope, headache, dizziness, GI bleed, back pain, seizure, CVA, palpatations, mental health, musculoskeletal)? @ -[not applicable] EKG interpreted by me (3pts min.). @ -Chest x-ray does not reveal any evidence of pneumonia or consolidation X-rays interpreted by me (1pt min.). @ -[None done] CT interpreted by me (1pt min.). @ -[None done] U/S interpreted by me (1pt. min.). @ -[None done] What testing was considered but not performed or refused? (CT, X-rays, U/S, labs)? Why? @ -[None] What meds were considered but not given or refused? Why? @ -[None] Did you discuss the management of the patient with other professionals (professionals i.e. , PA, ELECTRONEURODIAGNOSTIC TECHNOLOGIST, lab, RT, psych nurse, social worker delinquency prevention, cat cracker operator, teacher, armed security officer, onsite case manager)? Give summary @ -[No] Was smoking cessation discussed for >3mins.? @ -[No] Was critical care preformed (if so, how long)? @ -[No] Were there social determinants of health that impacted care today? How? (Homelessness, low income, unemployed, alcoholism, drug addiction, transportation, low edu. Level, literacy, decrease access to med. care, penitentiary, rehab)? @ -[No] Was there de-escalation of care discussed even if they declined (Discuss DNR or withdrawal of care, Hospice)? DNR status @ -[No] What co-morbidities impacted this encounter? (DM, HTN, Smoking, COPD, CAD, Cancer, CVA, ARF, Chemo, Hep., AIDS, mental health diagnosis, sleep apnea, morbid obesity)? @ -[None] Was patient admitted / discharged? Hospital course, mention meds given and route, prescriptions, significant lab abnormalities, going to OR and other pertinent info. @ -Discharged. This is a 22-year-old -[place] female presents to the emergency department with cough and sore throat. Patient had a thorough history and physical exam performed on the ED. Physical exam essentially unremarkable. Vital signs stable. Patient oxygen saturation between 98% and 100% on room air. Heart rate regular rate and rhythm, lungs clear to auscultation bilaterally abdomen soft nontender. Patient had viral testing and Chest x-ray which were negative. I discussed the results in detail with the patient verbal ized understanding and all questions were addressed. She'll be discharged home in stable condition. Return precautions discussed at length. Case discussed with Dr. Birch [facility] who agrees with plan of care Undiagnosed new problem with uncertain prognosis? @ -[No] Drug Therapy requiring intensive monitoring for toxicity (Heparin, Nitro, Ins ulin, Cardizem)? @ -[No] Were any procedures done? @ -[No] Diagnosis/symptom? @ -cough Acute, or Chronic, or Acute on Chronic? @ -Acute Uncomplicated (without systemic symptoms) or Complicated (systemic symptoms)? @ -Uncomplicated Side effects of treatment? @ -[No] Exacerbation, Progression, or Severe Exacerbation? @ -[No] Poses a threat to life or bodily function? How? (Chest pain, [place], [place], pneumonia, PE, COPD, DKA, ARF, appy, cholecystitis, CVA, Diverticulitis, Homicidal, Suicidal, threat to staff... and all critical care pts) @ -Low likelihood - Lab Data Lab Results 05/20/23 Range/Units 16:24 Influenza Type A (PCR) Not Detected (Not Detectd) Influenza Type B (PCR) Not Detected (Not Detectd) RSV (PCR) Not Detected (Not Detectd) SARS-CoV-2 (PCR) Not Detected (Not Detectd) Disposition Clinical Impression: Cough Disposition: HOME SELF-CARE Condition: Stable Instructions (If sedation given, give patient instructions): Upper Respiratory Infection (ED) Additional Instructions: Please return to the nearest emergency department symptoms worsen or persist Is patient prescribed a controlled substance at d/c from ED?: No Referrals: None,Stated [REFERRING] - 1-2 days Time of Disposition: 17:40
--- NOTE | 2023-05-20 16:59 | XR ---
EXAMINATION TYPE: XR chest 2V DATE OF EXAM: 05/20/2023 4:42 PM CLINICAL INDICATION:Female, 22 years old with history of cough; [facility] COMPARISON: Chest radiographs from 05/19/2023 TECHNIQUE: XR chest 2V Frontal and lateral views of the chest. FINDINGS: Lungs/Pleura: There is no evidence of pleural effusion, focal consolidation, or pneumothorax. Pulmonary vascularity: Unremarkable. Heart/mediastinum: Cardiomediastinal silhouette is unremarkable. Musculoskeletal: No acute osseous pathology. IMPRESSION: No acute cardiopulmonary disease/process.
[2023-05-20 17:05] VITALS: RESP 18
[2023-05-20 18:14] VITALS: BP 127/68; PULSE 66; TEMP 98
== END 2023-05-20 18:14 | disposition home or self-care (01) ==
LOC: EC 15:35
DX: R05.9 Cough, unspecified (principal); Z20.822 Contact with and (suspected) exposure to COVID-19; J45.909 Unspecified asthma, uncomplicated; F17.200 Nicotine dependence, unspecified, uncomplicated; F12.90 Cannabis use, unspecified, uncomplicated; Z91.010 Allergy to peanuts; Z91.030 Bee allergy status; Z91.09 Other allergy status, other than to drugs and biological substances
CPT/HCPCS: 71046; 87636; 99285

== ENCOUNTER 2023-07-12 03:02 | Observation (INO) | payer OTHER ==
[2023-07-12] MEDS ORDERED: LORazepam 2 MG/ML INJ IM STA (03:14)
[2023-07-12] MEDS ORDERED: diphenhydrAMINE 50 MG/ML 1 ML VIAL IM STA (03:14)
[2023-07-12] MEDS: HALOPERIDOL DECANOATE 50 MG/ML 1 ML VIAL IM STA ×2 (03:22→03:24)
[2023-07-12] MEDS ORDERED: HALOPERIDOL LACTATE 5 MG/ML 1 ML VIAL IM STA (03:23)
[2023-07-12 03:43] LABS: Glucose,Whole Blood 76 mg/dL (70-110)
--- NOTE | 2023-07-12 03:48 | ED ---
General Adult HPI - General Source: patient, EMS Mode of arrival: EMS <Matt Carias - Last Filed: 07/12/23 06:08> <Bill Bolanos - Last Filed: 07/12/23 11:00> - General Chief complaint: Seizure Stated complaint: Seizure - History of Present Illness Initial comments: Dictation was produced using [employer] dictation software. please excuse any grammatical, word or spelling errors. Chief Complaint: 22-year-old female with history of seizure disorder presents to the ER for altered mental status and after having a seizure History of Present Illness: Patient is 22-year-old female she has a past medical history of seizure disorder. She was at [place] of the local dive bars when there was a very dramatic scene. Patient has allegedly stress-induced seizures. She had a witnessed tonic-clonic episode for several minutes followed by altered me ntal status. EMS was contacted and brought to the emergency department she was aggressive and disorderly. ROS unable to obtain secondary to patient being uncooperative (Matt Carias) - Related Data Home Medications Medication Instructions Recorded Confirmed EPINEPHrine (Auto Inject) [Epipen] 0.3 mg IM ONCE PRN 07/27/22 07/27/22 Loratadine [Claritin] 10 mg PO DAILY 07/27/22 07/27/22 Vitamin D3 50,000iu 50,000 units PO Q30D 07/27/22 07/27/22 Previous Rx's Medication Instructions Recorded FLUoxetine HCL [PROzac] 20 mg PO DAILY #10 cap 07/29/22 Folic Acid 1 mg PO DAILY #10 tab 07/29/22 Lacosamide [Vimpat] 50 mg PO Q12H #20 tab 07/29/22 OLANZapine [ZyPREXA] 5 mg PO HS #10 tab 07/29/22 Thiamine [Vitamin B-1] 100 mg PO DAILY #10 tab 07/29/22 Albuterol Inhaler [Ventolin Hfa 2 puff INHALATION QID #8 gm 05/20/23 Inhaler] predniSONE 50 mg PO DAILY #5 tab 05/20/23 Allergies Allergy/AdvReac Type Severity Reaction Status Date / Time bee pollen Allergy Anaphylaxis Verified 05/20/23 15:46 bee venom protein (honey bee) Allergy Anaphylaxis Verified 05/20/23 15:46 grass pollen Allergy Dyspnea Verified 05/20/23 15:46 peanut Allergy Swelling Verified 05/20/23 15:46 DUST Allergy Dyspnea Uncoded 05/20/23 15:46 Review of Systems ROS Other: All systems not noted in ROS Statement are negative. <Matt Carias - Last Filed: 07/12/23 06:08> ROS Other: All systems not noted in ROS Statement are negative. <Bill Bolanos - Last Filed: 07/12/23 11:00> ROS Statement: Those systems with pertinent positive or pertinent negative responses have been documented in the HPI. Past Medical History Past Medical History: Asthma, GERD/Reflux, Seizure Disorder Additional Past Medical History / Comment(s): stress seizures History of Any Multi-Drug Resistant Organisms: None Reported Past Surgical History: Tonsillectomy Additional Past Surgical History / Comment(s): nose surgery, Past Anesthesia/Blood Transfusion Reactions: No Reported Reaction Past Psychological History: ADD/ADHD, Bipolar, Depression Smoking Status: Current every day smoker Past Alcohol Use History: Occasional Past Drug Use History: Marijuana - Past Family History Brother(s) Family Medical History: Asthma Additional Family Medical History / Comment(s): seasonal allergies Mother Family Medical History: Cancer Additional Family Medical History / Comment(s): bone and breast cancer, per pt. asthma. hernia <Matt Carias - Last Filed: 07/12/23 06:08> General Exam <Matt Carias - Last Filed: 07/12/23 06:08> - General Exam Comments Initial Comments: PHYSICAL EXAM: General Impression: Aggressive, yelling of seen at ease at staff HEENT: Normocephalic atraumatic, extra-ocular movements intact, pupils equal and reactive to light bilaterally, mucous membranes moist. Chest: Able to complete full sentences, no retractions, no tachypnea Abdomen: abdomen soft, non-tender, non-distended, no organomegaly Musculoskeletal: Pulses present and equal in all extremities, no peripheral edema Motor: no focal deficits noted Neurological: Moves all extremities grossly Skin: Intact with no visualized rashes Psych: Belligerent, aggressive (Matt Carias) Course <Matt Carias - Last Filed: 07/12/23 06:08> Vital Signs 07/12/23 07/12/23 07/12/23 03:08 04:13 07:21 Pulse Rate 107 H 80 71 Respiratory 22 16 Rate Blood Pressure 105/57 111/53 O2 Sat by Pulse 95 97 Oximetry 07/12/23 10:05 Pulse Rate 82 Respiratory 19 Rate Blood Pressure 114/55 O2 Sat by Pulse 95 Oximetry - Reevaluation(s) Reevaluation #1: 07/12/23 03:47 Patient seen and evaluated initially in room #17. She is placed on restraints. She was very violent and belligerent towards myself and staff. Patient required sedation. Plan care blood glucose was 76. Vital signs are stable. (Matt Carias) Procedures - Restraint - Face to Face Restraint Occurrence 1 Patient's Immediate Situation: Endangers self safety, Endangers others' safety, Endangers staff safety Patient's Reaction to the Intervention: Aggressive, Combative Patient's Medical & Behavioral Condition: Agitated Need to Continue or Terminate Restraint or Seclusion: Continue Face to Face Eval of Restraint Date: 07/12/23 Face to Face Eval of Restraint Time: 03:05 <Matt Carias - Last Filed: 07/12/23 06:08> Medical Decision Making - Lab Data Result diagrams: 07/12/23 04:00 07/12/23 04:00 <Matt Carias - Last Filed: 07/12/23 06:08> - Lab Data Result diagrams: 07/12/23 04:00 07/12/23 07:33 <Bill Bolanos - Last Filed: 07/12/23 11:00> - Medical Decision Making Was pt. sent in by a medical professional or institution (, PA, BEESWAX BLEACHER, urgent care, hospital, or [facility]...) When possible be specific @ -No Did you speak to anyone other than the patient for history (EMS, parent, family, police, friend...)? What history was obtained from this source @ -No Did you review nursing and triage notes (agree or disagree)? Why? @ -I reviewed and agree with nursing and triage notes Were old charts reviewed (outside hosp., previous admission, EMS record, old EKG, old radiological studies, urgent care reports/EKG's, [facility] records)? Report findings @ -No old charts were reviewed Differential Diagnosis (chest pain, altered mental status, abdominal pain women, abdominal pain men, vaginal bleeding, musculoskeletal, weakness, fever, dyspnea, syncope, headache, dizziness, GI bleed, back pain, seizure, CVA, palpatations, mental health)? @ -Differential Altered Mental Status: Hypoglycemia, DKA, hypercapnia, ETOH, overdose, CO poisoning, trauma, myxedema coma, HTN encephalopathy, infection, encephalitis, psychosis, intercranial hemorrhage, hepatic encephalopathy, meningitis, CVA, this is not meant to be an all-inclusive list EKG interpreted by me (3pts min.). @ -None done X-rays interpreted by me (1pt min.). @ -None done CT interpreted by me (1pt min.). @ -None done U/S interpreted by me (1pt. min.). @ -None done What testing was considered but not performed or refused? (CT, X-rays, U/S, labs)? Why? @ -None What meds were considered but not given or refused? Why? @ -None Did you discuss the management of the patient with other professionals (professionals i.e. , PA, BEESWAX BLEACHER, lab, RT, psych nurse, social service manager, leather toggler, teacher, administrative services officer, bottle caser)? Give summary @ -No Was smoking cessation discussed for >3mins.? @ -No Was critical care preformed (if so, how long)? @ -No Were there social determinants of health that impacted care today? How? (Homelessness, low income, unemployed, alcoholism, drug addiction, transportation, low edu. Level, literacy, decrease access to med. care, retirement, rehab)? @ -No Was there de-escalation of care discussed even if they declined (Discuss DNR or withdrawal of care, Hospice)? DNR status @ -No What co-morbidities impacted this encounter? (DM, HTN, Smoking, COPD, CAD, Cancer, CVA, ARF, Chemo, Hep., AIDS, mental health diagnosis, sleep apnea, m orbid obesity)? @ -None Was patient admitted / discharged? Hospital course, mention meds given and route, prescriptions, significant lab abnormalities, going to OR and other pertinent info. @ -22-year-old female presents emergency via for altered mental status. There is also concern that patient had a seizure. Upon arrival to the emergency department she was awake and alert however she is combative and belligerent. Vital signs are stable. Patient required sedating medications. Laboratory evaluation obtained. CBC metabolic panel shows lactic acid of 6.7, serum alcohol 69, CK of 251. Patient is so restrained resting comfortably at bedside. Patient is sent out to Dr. Bolanos at 7 AM Undiagnosed new problem with uncertain prognosis? @ -No Drug Therapy requiring intensive monitoring for toxicity (Heparin, Nitro, Insulin, Cardizem)? @ -No Were any procedures done? @ -No Diagnosis/symptom? Acute, or Chronic, or Acute on Chronic? Uncomplicated (without systemic symptoms) or Complicated (systemic symptoms)? @ -Seizure, altered mental status Side effects of treatment? @ -No Exacerbation, Progression, or Severe Exacerbation? @ -No Poses a threat to life or bodily function? How? (Chest pain, [place], [place], pneumonia, PE, COPD, DKA, ARF, appy, cholecystitis, CVA, Diverticulitis, Homicidal, Suicidal, threat to staff... and all critical care pts) @ -yes (Matt Carias) Was patient admitted / discharged? Hospital course, mention meds given and route, prescriptions, significant lab abnormalities, going to OR and other pe rtinent info. @ -Patient was signed out to me at 7 AM this morning. Patient was difficult to arouse even after being in the ER 8 hours in since the patient had a elevated lactic acid gave the patient later half of fluid came down to 2.3 but was still not normal and she was still not awake and alert and oriented at her baseline as I spoke with Dr. Robbins and he agreed to admit the patient admitted the patient wrote admitting orders Undiagnosed new problem with uncertain prognosis? @ -No Drug Therapy requiring intensive monitoring for toxicity (Heparin, Nitro, Insulin, Cardizem)? @ -No Were any procedures done? @ -No Diagnosis/symptom? @ -Altered mental status Acute, or Chronic, or Acute on Chronic? @ -Acute Uncomplicated (without systemic symptoms) or Complicated (systemic symptoms)? @ -Complicated Side effects of treatment? @ -No Exacerbation, Progression, or Severe Exacerbation? @ -No Poses a threat to life or bodily function? How? (Chest pain, [place], [place], pneumonia, PE, COPD, DKA, ARF, appy, cholecystitis, CVA, Diverticulitis, Homicidal, Suicid al, threat to staff... and all critical care pts) @ -No (BolanosTonye) - Lab Data Lab Results 07/12/23 07/12/23 07/12/23 Range/Units 03:41 04:00 04:00 WBC 4.5 (3.8-10.6) k/uL RBC 4.04 (3.80-5.40) m/uL Hgb 12.2 (11.4-16.0) gm/dL Hct 36.5 (34.0-46.0) % MCV 90.5 (80.0-100.0) fL MCH 30.2 (25.0-35.0) pg MCHC 33.4 (31.0-37.0) g/dL RDW 13.2 (11.5-15.5) % Plt Count 193 (150-450) k/uL MPV 8.6 Neutrophils % 47 % Lymphocytes % 39 % Monocytes % 8 % Eosinophils % 2 % Basophils % 1 % Neutrophils # 2.1 (1.3-7.7) k/uL Lymphocytes # 1.8 (1.0-4.8) k/uL Monocytes # 0.4 (0-1.0) k/uL Eosinophils # 0.1 (0-0.7) k/uL Basophils # 0.0 (0-0.2) k/uL Sodium 141 (137-145) mmol/L Potassium 3.2 L (3.5-5.1) mmol/L Chloride 110 H (98-107) mmol/L Carbon Dioxide 13 L (22-30) mmol/L Anion Gap 18 mmol/L BUN 7 (7-17) mg/dL Creatinine 0.77 (0.52-1.04) mg/dL Est GFR (CKD-EPI)AfAm >90 (>60 ml/min/1.73 sqM) Est GFR (CKD-EPI)NonAf >90 (>60 ml/min/1.73 sqM) Glucose 67 L (74-99) mg/dL POC Glucose (mg/dL) 76 (70-110) mg/dL POC Glu Flight Physician ID [place] Lactic Ac Sepsis Rflx Plasma Lactic Acid Vladislav (0.7-2.0) mmol/L Calcium 9.1 (8.4-10.2) mg/dL Total Bilirubin (0.2-1.3) mg/dL AST (14-36) U/L ALT (4-34) U/L Alkaline Phosphatase (38-126) U/L Creatine Kinase 251 H (30-135) U/L Total Protein (6.3-8.2) g/dL Albumin (3.5-5.0) g/dL HCG, Quant <2.4 mIU/mL Serum Alcohol 69 mg/dL 07/12/23 07/12/23 07/12/23 Range/Units 04:00 05:49 07:33 WBC (3.8-10.6) k/uL RBC (3.80-5.40) m/uL Hgb (11.4-16.0) gm/dL Hct (34.0-46.0) % MCV (80.0-100.0) fL MCH (25.0-35.0) pg MCHC (31.0-37.0) g/dL RDW (11.5-15.5) % Plt Count (150-450) k/uL MPV Neutrophils % % Lymphocytes % % Monocytes % % Eosinophils % % Basophils % % Neutrophils # (1.3-7.7) k/uL Lymphocytes # (1.0-4.8) k/uL Monocytes # (0-1.0) k/uL Eosinophils # (0-0.7) k/uL Basophils # (0-0.2) k/uL Sodium 141 (137-145) mmol/L Potassium 3.5 (3.5-5.1) mmol/L Chloride 110 H (98-107) mmol/L Carbon Dioxide 18 L (22-30) mmol/L Anion Gap 13 mmol/L BUN 6 L (7-17) mg/dL Creatinine 0.69 (0.52-1.04) mg/dL Est GFR (CKD-EPI)AfAm >90 (>60 ml/min/1.73 sqM) Est GFR (CKD-EPI)NonAf >90 (>60 ml/min/1.73 sqM) Glucose 80 (74-99) mg/dL POC Glucose (mg/dL) (70-110) mg/dL POC Glu Flight Physician ID Lactic Ac Sepsis Rflx Y Plasma Lactic Acid Vladislav 6.7 H* (0.7-2.0) mmol/L Calcium 8.9 (8.4-10.2) mg/dL Total Bilirubin 0.7 (0.2-1.3) mg/dL AST 25 (14-36) U/L ALT 12 (4-34) U/L Alkaline Phosphatase 57 (38-126) U/L Creatine Kinase (30-135) U/L Total Protein 6.7 (6.3-8.2) g/dL Albumin 4.0 (3.5-5.0) g/dL HCG, Quant mIU/mL Serum Alcohol mg/dL 07/12/23 07/12/23 Range/Units 07:33 08:50 WBC (3.8-10.6) k/uL RBC (3.80-5.40) m/uL Hgb (11.4-16.0) gm/dL Hct (34.0-46.0) % MCV (80.0-100.0) fL MCH (25.0-35.0) pg MCHC (31.0-37.0) g/dL RDW (11.5-15.5) % Plt Count (150-450) k/uL MPV Neutrophils % % Lymphocytes % % Monocytes % % Eosinophils % % Basophils % % Neutrophils # (1.3-7.7) k/uL Lymphocytes # (1.0-4.8) k/uL Monocytes # (0-1.0) k/uL Eosinophils # (0-0.7) k/uL Basophils # (0-0.2) k/uL Sodium (137-145) mmol/L Potassium (3.5-5.1) mmol/L Chloride (98-107) mmol/L Carbon Dioxide (22-30) mmol/L Anion Gap mmol/L BUN (7-17) mg/dL Creatinine (0.52-1.04) mg/dL Est GFR (CKD-EPI)AfAm (>60 ml/min/1.73 sqM) Est GFR (CKD-EPI)NonAf (>60 ml/min/1.73 sqM) Glucose (74-99) mg/dL POC Glucose (mg/dL) (70-110) mg/dL POC Glu Flight Physician ID Lactic Ac Sepsis Rflx Y Plasma Lactic Acid Vladislav 2.3 H* (0.7-2.0) mmol/L Calcium (8.4-10.2) mg/dL Total Bilirubin (0.2-1.3) mg/dL AST (14-36) U/L ALT (4-34) U/L Alkaline Phosphatase (38-126) U/L Creatine Kinase (30-135) U/L Total Protein (6.3-8.2) g/dL Albumin (3.5-5.0) g/dL HCG, Quant mIU/mL Serum Alcohol mg/dL Disposition <Matt Carias - Last Filed: 07/12/23 06:08> Time of Disposition: 11:00 <Bill Bolanos - Last Filed: 07/12/23 11:00> Clinical Impression: Altered mental status Disposition: ADMITTED IP TO THIS HOSP Referrals: Feroz Alanis MD [Primary Care Provider] - 1-2 days
[2023-07-12 05:22] LABS: Basophils % (A) 1 %; Eosinophils # (A) 0.1 k/uL (0-0.7); Eosinophils % (A) 2 %; HCT 36.5 % (34.0-46.0); HGB 12.2 gm/dL (11.4-16.0); Lymphocytes # (A) 1.8 k/uL (1.0-4.8); Lymphocytes % (A) 39 %; MCH 30.2 pg (25.0-35.0); MCHC 33.4 g/dL (31.0-37.0); MCV 90.5 fL (80.0-100.0); Mean Platelet Volume 8.6; Monocytes # (A) 0.4 k/uL (0-1.0); Monocytes % (A) 8 %; Neutrophils # (A) 2.1 k/uL (1.3-7.7); Neutrophils % (A) 47 %; Platelet Count 193 k/uL (150-450); RBC 4.04 m/uL (3.80-5.40); RDW 13.2 % (11.5-15.5); WBC 4.5 k/uL (3.8-10.6)
[2023-07-12 05:25] LABS: African American GFR (CKD) >90 (>60 ml/min/1.73 sqM); Alcohol 69 mg/dL; Anion Gap 18 mmol/L; Blood Urea Nitrogen 7 mg/dL (7-17); Calcium 9.1 mg/dL (8.4-10.2); Carbon Dioxide 13 mmol/L (22-30); Chloride 110 mmol/L (98-107); Creatine Kinase 251 U/L (30-135); Glucose 67 mg/dL (74-99); Non-African American GFR(CKD) >90 (>60 ml/min/1.73 sqM); Potassium 3.2 mmol/L (3.5-5.1); Sodium 141 mmol/L (137-145)
[2023-07-12 05:41] LABS: HCG,Quantitative Serum <2.4 mIU/mL
[2023-07-12] MEDS ORDERED: SODIUM CHLORIDE 0.9% 2,000 ML IV ONE (07:25)
[2023-07-12 08:12] LABS: ALT 12 U/L (4-34); AST 25 U/L (14-36); African American GFR (CKD) >90 (>60 ml/min/1.73 sqM); Alkaline Phosphatase 57 U/L (38-126); Anion Gap 13 mmol/L; Blood Urea Nitrogen 6 mg/dL (7-17); Calcium 8.9 mg/dL (8.4-10.2); Carbon Dioxide 18 mmol/L (22-30); Chloride 110 mmol/L (98-107); Glucose 80 mg/dL (74-99); Non-African American GFR(CKD) >90 (>60 ml/min/1.73 sqM); Potassium 3.5 mmol/L (3.5-5.1); Sodium 141 mmol/L (137-145); Total Bilirubin 0.7 mg/dL (0.2-1.3); Total Protein 6.7 g/dL (6.3-8.2)
[2023-07-12] MEDS ORDERED: SODIUM CHLORIDE 0.9% 1,000 ML IV ONE (11:00)
[2023-07-12 12:27] LABS: Glucose,Whole Blood 81 mg/dL (70-110)
[2023-07-12] MEDS ORDERED: ALBUTEROL NEBULIZED 2.5 MG/3 ML INHALATION PRN (14:31)
[2023-07-12 14:43] VITALS: BP 103/65; PULSE 65; RESP 16; TEMP 97.4
[2023-07-12] MEDS ORDERED: OXcarbazepine 150 MG TAB PO SCH (15:15)
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
--- NOTE | 2023-07-13 19:28 | DS ---
DISCHARGE SUMMARY CHIEF COMPLAINT: Mental status changes. HISTORY OF PRESENT ILLNESS AND PHYSICAL EXAMINATION: Details of this lady's history and physical can be found in the initial workup. LABORATORY STUDIES: While she was in the hospital, she had laboratory studies, details of which can be found in the laboratory section of her chart. COURSE IN THE HOSPITAL: After admission, she was placed on bedrest, started on intravenous fluids and underwent frequent monitoring of her neurologic status and vital signs. She had to be sedated, but when she woke up, she signed herself out against medical advice. FINAL DIAGNOSES: 1. Mental status changes. 2. Seizure disorder. OPERATIONS: None. CONSULTATION: None. She is improved. MMODL / IJN: [id number] /
== END 2023-07-12 17:30 | disposition left against medical advice (07) ==
LOC: EC 03:02 → INTOOBSV 11:02 → 5NMEDONC 11:02 → UNDODISIN 17:30
PROVIDERS: ADMIT Family Medicine; ATTEND Family Medicine
DX: G40.909 Epilepsy, unspecified, not intractable, without status epilepticus (principal); R41.82 Altered mental status, unspecified; Z53.29 Procedure and treatment not carried out because of patient's decision for other reasons; R45.6 Violent behavior; R45.1 Restlessness and agitation; Z78.1 Physical restraint status; F31.9 Bipolar disorder, unspecified; F90.9 Attention-deficit hyperactivity disorder, unspecified type; K21.9 Gastro-esophageal reflux disease without esophagitis; F17.200 Nicotine dependence, unspecified, uncomplicated; Z79.899 Other long term (current) drug therapy; Z91.030 Bee allergy status; Z91.010 Allergy to peanuts; Z91.048 Other nonmedicinal substance allergy status; Z98.890 Other specified postprocedural states; Z82.5 Family history of asthma and other chronic lower respiratory diseases; Z80.3 Family history of malignant neoplasm of breast; Z80.8 Family history of malignant neoplasm of other organs or systems
CPT/HCPCS: 96372; 99285; 36415; 93005; 80053; 80048; 82550; 83605; 85025; 84702; G0378; G0480; J2060; J1200; J1630; 80320; 96360; 96361

== ENCOUNTER → 2024-08-31 | Outpatient (CLI) | payer OTHER ==
--- NOTE | 2024-08-31 10:10 | US ---
EXAMINATION TYPE: US abdomen complete DATE OF EXAM: 08/31/2024 COMPARISON: NONE CLINICAL INDICATION: Female, 24 years old with history of R14.0 Abdominal distension; Hx ?Hernia sinc e 2018; Pain and discomfort x 2 weeks with nausea and vomiting TECHNIQUE: Grayscale and color Doppler imaging of the abdomen was performed. FINDINGS: EXAM MEASUREMENTS: Liver Length: 18.2 cm Gallbladder Wall: 0.1 cm CBD: 0.5 cm, color Doppler imaging was utilized to isolate the common bile duct for measurement. Spleen: 11.2 cm Right Kidney: 11.3 x 4.3 x 4.9 cm Left Kidney: 11.1 x 5.8 x 5.3 cm YACHT BUILDER NOTES: ?Hernia seen at patients AOC with peristalsis and movement into herniate area with valsalva = 4.1 x 1.5 x 3.9 cm. Pancreas: wnl Liver: wnl Gallbladder: wnl Evidence for sonographic Hunt's sign: No CBD: wnl Spleen: wnl Right Kidney: wnl Left Kidney: wnl Upper IVC: wnl Abd Aorta: wnl The liver is homogenous without focal lesion. The intrahepatic portion of the IVC and proximal abdom inal aorta are within normal limits. There is no evidence of cholelithiasis. Common bile duct is un remarkable. The visualized portions of the pancreas are homogenous. The spleen is unremarkable. Ki dneys are symmetric and free of hydronephrosis. No renal lesions are seen. Umbilical hernia identifi ed with peristalsis identified in the hernia sac. IMPRESSION: Umbilical hernia containing bowel suggested. No other significant abnormality identified. Consider fu rther evaluation with CT abdomen and pelvis. [facility], , 08/31/2024 10:08 AM
--- NOTE | 2024-08-31 10:13 | US ---
EXAMINATION TYPE: US transvaginal DATE OF EXAM: 08/31/2024 COMPARISON: 06/21/2018 CLINICAL INDICATION: Female, 24 years old with history of female pelvic pain; Dr felt "Swelling" on p ap smear. TECHNIQUE: Transvaginal (TV). Transvaginal sonographic images were ordered Doppler imaging: Not performed. FINDINGS: Date of LMP: 07/09/2024 EXAM MEASUREMENTS: Uterus: 10.0 x 5.6 x 6.1 cm Endometrial Stripe: 1.0 cm Right Ovary: 2.8 x 1.5 x 3.4 cm Left Ovary: 2.6 x 1.6 x 1.9 cm 1. Uterus: Anteverted wnl 2. Endometrium: wnl 3. Right Ovary: wnl 4. Left Ovary: wnl 5. Bilateral Adnexa: Dilated, avascular, tubular structures noted within 6. Posterior cul-de-sac: trace free fluid Unremarkable appearance of the anteverted uterus without focal lesion. Endometrium is within normal l imits. Both ovaries appear within normal limits. Dilated tubular structures noted within the bilatera l adnexa. Trace simple free fluid within the posterior cul-de-sac which is likely physiologic. IMPRESSION: Dilated tubular structures noted within the bilateral adnexa which can be seen with pelvic congestion syndrome. Correlate clinically. [facility], , 08/31/2024 10:11 AM
== END | disposition home or self-care (01) ==
LOC: RADUSWWP 09:08
PROVIDERS: ATTEND Family Medicine
DX: R14.0 Abdominal distension (gaseous) (principal); R10.2 Pelvic and perineal pain; R11.2 Nausea with vomiting, unspecified
CPT/HCPCS: 76700; 76830

== ENCOUNTER 2025-02-25 09:25 | Emergency (ER) | payer OTHER ==
[2025-02-25 09:32] VITALS: TEMP 98.1
[2025-02-25] MEDS: SODIUM CHLORIDE 0.9% 1,000 ML IV STA (09:36)
[2025-02-25 09:37] LABS: Glucose,Whole Blood 120 mg/dL (70-110)
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
[2025-02-25 09:56] LABS: Basophils # (A) 0.02 10*3/uL (0.00-0.10); Basophils % (A) 0.4 %; Eosinophils # (A) 0.23 10*3/uL (0.04-0.35); Eosinophils % (A) 4.7 %; HCT 35.4 % (37.2-46.3); HGB 12.1 g/dL (12.0-15.0); Lymphocytes # (A) 2.12 10*3/uL (0.90-5.00); Lymphocytes % (A) 43.6 %; MCH 31.1 pg (27.0-32.0); MCHC 34.2 g/dL (32.0-37.0); Mean Platelet Volume 10.9 fL (9.5-12.2); Monocytes # (A) 0.42 10*3/uL (0.20-1.00); Monocytes % (A) 8.6 %; Neutrophils # (A) 2.06 10*3/uL (1.80-7.70); Neutrophils % (A) 42.5 %; Platelet Count 172 10*3/uL (140-440); RBC 3.89 10*6/uL (4.10-5.20); RDW 12.8 % (11.5-14.5); WBC 4.86 10*3/uL (4.50-10.00)
[2025-02-25 10:08] LABS: African American GFR (CKD) >90 (>60 ml/min/1.73 sqM); Anion Gap 12 mmol/L; Blood Urea Nitrogen 7 mg/dL (7-17); Calcium 8.8 mg/dL (8.4-10.2); Carbon Dioxide 17 mmol/L (22-30); Chloride 111 mmol/L (98-107); Glucose 110 mg/dL (74-99); Non-African American GFR(CKD) >90 (>60 ml/min/1.73 sqM); Potassium 3.4 mmol/L (3.5-5.1); Sodium 140 mmol/L (137-145)
[2025-02-25 10:24] LABS: HCG,Quantitative Serum <2.4 mIU/mL
[2025-02-25 11:24] VITALS: BP 114/68; PULSE 62; RESP 17
== END 2025-02-25 12:45 | disposition other institution (70) ==
LOC: EC 09:25
DX: R56.9 Unspecified convulsions (principal); F17.200 Nicotine dependence, unspecified, uncomplicated; Z91.010 Allergy to peanuts; Z91.030 Bee allergy status; Z88.8 Allergy status to other drugs, medicaments and biological substances
CPT/HCPCS: 36415; 80048; 83605; 84702; 85025; 96360; 96361; 99285